=== PATIENT | female | born 2000 | race Caucasian/White ===

== ENCOUNTER 2022-01-05 04:13 | Emergency (ER) | payer MEDICAID, SELFPAY ==
[2022-01-05 04:14] VITALS: BP 125/73; PULSE 81; RESP 18; TEMP 36.7; O2SAT 98; BMI 39.8
--- NOTE | 2022-01-05 04:22 | RAD_ITS ---
STUDY: X-RAY CHEST REASON FOR EXAM: Female, 21 years old. sob TECHNIQUE: AP portable at 4:25 AM COMPARISON: None. FINDINGS: LUNGS: No consolidation. No pneumothorax. MEDIASTINUM: Unremarkable. CARDIAC SILHOUETTE: Not enlarged. BONES AND SOFT TISSUES: No acute abnormalities. RAD/Chest 1 View (Portable) IMPRESSION: Normal portable chest x-ray. Electronically Signed: Kimberly Alvarado MD at 4:52 EDT ,
--- NOTE | 2022-01-05 04:23 | EKG12_ITS ---
Test Reason : SYNCOPE Blood Pressure : / mmHG Vent. Rate : 090 BPM Atrial Rate : 090 BPM P-R Int : 174 ms QRS Dur : 082 ms QT Int : 346 ms P-R-T Axes : 051 019 022 degrees QTc Int : 423 ms Normal sinus rhythm Normal ECG Confirmed by EVERARDO IVY, ZE ([id number]), supervising film or videotape editor DORA THOMAS ([id number]) on 01/09/2022 8:50:46 AM Referred By: ROMAN Confirmed By:ZE MCGEE MD
--- NOTE | 2022-01-05 04:24 | EDS_ITS ---
HPI History of Present Illness Chief Complaint: Syncope Informant: patient and spouse/S.O. Onset/Context/Timing Onset: Today Narrative Narrative: Patient presents via EMS after syncopal episode. She and her significant other were walking from [place] to [place]. Patient states she remembers feeling anxious and getting short of breath. She states the next thing she knew she woke up on the curb. Significant other states that she had a syncopal episode and was unconscious for approximately 3 minutes. He called 911. Patient states she had been having some intermittent chest pain yesterday which she describes as sharp and pressure-like. She states that she is currently 9 weeks , last menstrual cycle October 31. She has not seen a physician to verify this. [facility] Medical History Anxiety Home Medications cephalexin 500 mg PO Q12 #10 cap 01/05/22 [Rx Last Taken Unknown] Allergy/AdvReac Type Severity Reaction Status Date / Time No Known Allergies Allergy Verified 01/05/22 04:16 Social History Smoking Status: Light Smoker (<10/day) ROS ROS ED Constitutional Constitutional ED: Denies chills or fever(s) Eyes Eyes: Denies change in vision ENT ENT ED: Denies sore throat Cardiovascular Cardiovascular: Reports chest pain Respiratory/Chest Respiratory/Chest: Reports dyspnea; Denies cough Gastrointestinal Gastrointestinal: Denies abdominal pain, diarrhea, nausea or vomiting Genitourinary Genitourinary ED: Reports urinary frequency; Denies dysuria Musculoskeletal Musculoskeletal: Denies back pain or neck pain Integumentary Denies rash Neurologic Neurologic: Denies headache(s) or weakness Allergic/Immunologic Allergic/Immunologic ED: Denies urticaria EXAM Physical Exam Const Vital Signs: 01/05/22 04:14 Temperature 98.1 F Temperature Source Oral Pulse Rate 81 Respiratory Rate 18 Blood Pressure 125/73 H Blood Pressure Mean 90 Pulse Ox 98 Oxygen Delivery Method Room Air Positive well nourished and well developed General Appearance ED: well developed HEENT Reports moist mucous membranes Eyes PERRL and EOMs intact bilaterally Neck supple Chest Wall inspection of chest normal and palpation of chest normal Resp normal respiratory effort and clear to auscultation bilaterally Cardio regular rate and regular rhythm GI normal to inspection, nondistended, normoactive bowel sounds and non-tender Palpation: soft Extremity normal to inspection Neuro oriented x3 and no sensory deficits noted Sensorium / Orientation: alert Motor Exam: strength 5/5 throughout Psych mental status grossly normal Skin no rashes or lesions noted MDM MDM MDM Narrative Medical decision making narrative: Patient placed on supervisor pumping station. EKG, chest x-ray, lab work obtained. Urinalysis ordered secondary to urinary frequency. Lab Data Attestation: I reviewed the patient's lab results. Labs: Laboratory Results - last 24 hr 01/05/22 01/05/22 01/05/22 04:23 04:23 04:23 WBC 12.1 H RBC 4.40 Hgb 11.4 L Hct 35.9 L MCV 81.6 MCH 25.9 L MCHC 31.8 L RDW Std Deviation 44.8 H RDW Coeff of Tiara 15.0 H Plt Count 254 MPV 10.2 Immature Gran % (Auto) 0.200 Neut % (Auto) 81.2 H Lymph % (Auto) 13.2 L [place] % (Auto) 4.8 Eos % (Auto) 0.4 Baso % (Auto) 0.2 Absolute Neuts (auto) 9.8 H Absolute Lymphs (auto) 1.60 Nucleated RBC % 0 D-Dimer Quant (PE/DVT) < 0.27 L Sodium 137 Potassium 4.0 Chloride 107 Carbon Dioxide 28.0 Anion Gap 2 L BUN 15 Creatinine 0.76 Estim Creat Clear Calc 93.39 Est GFR (MDRD) Af Amer 125 Est GFR (MDRD) Non-Af 103 BUN/Creatinine Ratio 19.8 Glucose 99 Calcium 8.8 Troponin I High Sens 4 HCG, Quant Urine Color Urine Clarity Urine pH Ur Specific [place] Urine Protein Urine Glucose (UA) Urine Ketones Urine Occult Blood Urine Nitrite Urine Bilirubin Urine Urobilinogen Ur Leukocyte Esterase Urine RBC Urine WBC Ur Squamous Epith Cells Urine Bacteria Urine Mucus 01/05/22 01/05/22 04:23 04:33 WBC RBC Hgb Hct MCV MCH MCHC RDW Std Deviation RDW Coeff of Ti[place] Plt Count MPV Immature Gran % (Auto) Neut % (Auto) Lymph % (Auto) [place] % (Auto) Eos % (Auto) Baso % (Auto) Absolute Neuts (auto) Absolute Lymphs (auto) Nucleated RBC % D-Dimer Quant (PE/DVT) Sodium Potassium Chloride Carbon Dioxide Anion Gap BUN Creatinine Estim Creat Clear Calc Est GFR (MDRD) Af Amer Est GFR (MDRD) Non-Af BUN/Creatinine Ratio Glucose Calcium Troponin I High Sens HCG, Quant 47450 H Urine Color Yellow Urine Clarity Sl. Cloudy Urine pH 6.0 Ur Specific [place] 1.010 Urine Protein Negative Urine Glucose (UA) Normal Urine Ketones Negative Urine Occult Blood 25 H Urine Nitrite Negative Urine Bilirubin Negative Urine Urobilinogen Normal Ur Leukocyte Esterase 500 H Urine RBC 5-10 SEEN Urine WBC 10-25 SEEN Ur Squamous Epith Cells 5-10 SEEN Urine Bacteria 3+ Urine Mucus 0 SEEN Radiography Diagnostic Testing: Clinical Impression(s) from Imaging Studies Chest X-Ray 01/05/22 04:22 IMPRESSION: Normal portable chest x-ray. Electronically Signed: Kimberly Alvarado MD at 4:52 EDT Reading Location ID and State: [address] [place] [address] Tel , Service support , EKG Initial EKG: Attestation: I personally reviewed and interpreted this EKG as follows: Interpretation: Sinus Rhythm (Sinus at 90 with no acute ischemia.) Treatment and Re-Evaluation Narrative: On repeat evaluation patient resting comfortably. No further symptoms while in the emergency room. Lab work reveals mildly elevated white count at 12.1. 81% neutrophils appreciated. D-dimer less than 0.27. Chemistry studies normal. Urinalysis does show 5-10 epithelial cells, however 3+ bacteria are noted with 10-25 white cells. In light of the fact that she is she will be covered with a short course of Keflex. 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 Disposition Disposition: Home, Self Care
[2022-01-05] MEDS: 0.9% Normal Saline 1,000 ML 1000 ML IV (04:29)
[2022-01-05 04:33] LABS: Absolute Neutrophil Count 9.8 X10^3/uL (2.0-7.7); Basophil# 0.02 X10^3/uL; Basophil% 0.2 % (0-1); Eosinophil# 0.05 X10^3/uL; Eosinophils% 0.4 % (0-5); Hematocrit 35.9 % (37-47); Hemoglobin 11.4 g/dL (12.0-15.0); Lymphocyte % 13.2 % (19-41); Mean Corp Hgb Conc 31.8 g/dL (32-36); Mean Corpuscular Hgb 25.9 pg (27.0-32.0); Mean Corpuscular Volume 81.6 fL (81-99); Mean Platelet Vol. 10.2 fl (6.2-12.0); Monocyte# 0.58 X10^3/uL; Monocyte% 4.8 % (0-10); NRBC Flagged by Analyzer 0 % (0-5); Neutrophil # 9.84 X10^3/uL (2.7-7.7); Neutrophil % 81.2 % (47-70); Platelet Count 254 K/mm3 (150-450); RBC Distribution Width SD 44.8 fl (35.1-43.9); White Blood Count 12.1 K/mm3 (4.4-11.0)
[2022-01-05 04:39] LABS: Mucous, Urine 0 SEEN /hpf (<or=2+)
[2022-01-05 04:43] LABS: Color, Urine Yellow (Yellow); Glucose, Dipstick Normal (Normal); Ketone-Dipstick Negative (Negative); Leukocyte Esterase-Dipstick 500 /ul (Negative); Nitrite-Dipstick Negative (Negative); Occult Blood-Urine 25 /ul (Negative); Protein-Dipstick Negative (Negative); Urine Bilirubin Dipstick Negative (Negative); Urine Clarity Sl. Cloudy (Clear); Urine Urobilinogen Normal (Normal)
[2022-01-05 04:49] LABS: Red Blood Cells-Urine 5-10 SEEN /hpf (0-5); White Blood Cells 10-25 SEEN /hpf (0-5)
[2022-01-05 04:49] LABS: D-Dimer Quantitative (DVT/PE) < 0.27 FEU/ug/m (0.27-0.49)
[2022-01-05 04:50] LABS: Bacteria 3+ /hpf (None Seen); Squamous Epithelial Cells - UA 5-10 SEEN /hpf (5-10)
[2022-01-05 04:53] LABS: BUN 15 mg/dL (7-18); Creatinine, Serum 0.76 mg/dL (0.55-1.02); Glucose 99 mg/dL (74-106)
[2022-01-05 04:54] LABS: Anion Gap 2 (5-15); BUN/Creat Ratio 19.8 RATIO (10-20); Calcium,Total 8.8 mg/dL (8.5-10.1); Chloride 107 mmol/L (98-107); EST Glomerular Filtration Rate 103 mL/min (>60); Est Glom Filt Rate - Afr Amer 125 mL/min (>60); Estimated Creatinine Clearance 93.39 ml/min; Sodium Level 137 mmol/L (136-145); Troponin-I HS 4 pg/mL (3.0-54.0)
[2022-01-05] MEDS: Cephalexin 250 MG Capsule 500 MG PO (05:23)
[2022-01-05 05:27] VITALS: BP 120/60; PULSE 80; RESP 18; O2SAT 95
== END 2022-01-05 05:27 | disposition home or self-care (01) ==
PROVIDERS: Emergency Provider Emergency Medicine; Visit Provider Emergency Medicine
DX: O99.891 Other specified diseases and conditions complicating pregnancy (principal); R55 Syncope and collapse; O99.331 Smoking (tobacco) complicating pregnancy, first trimester; F17.200 Nicotine dependence, unspecified, uncomplicated; O26.891 Other specified pregnancy related conditions, first trimester; R82.71 Bacteriuria; R35.0 Frequency of micturition; Z3A.09 9 weeks gestation of pregnancy
CPT/HCPCS: 71045; 80048; 81001; 84484; 84702; 85025; 85379; 93005; 96360; 99285; J7030; A4216

== ENCOUNTER 2022-07-09 15:40 | Inpatient (IN) | payer MEDICAID, SELFPAY ==
[2022-07-09] VITALS (100 sets, daily range): BP systolic 130–219; BP diastolic 63–102; PULSE 63–162; RESP 16–18; TEMP 29.1–37.2; O2SAT 79–99; BMI 48.1
[2022-07-09 15:26] LABS: Hematocrit 33.3 % (37-47); Hemoglobin 10.8 g/dL (12.0-15.0); Mean Corp Hgb Conc 32.4 g/dL (32-36); Mean Corpuscular Hgb 27.7 pg (27.0-32.0); Mean Corpuscular Volume 85.4 fL (81-99); Platelet Count 228 K/mm3 (150-450); RBC Distribution Width CV 12.7 % (11.6-14.6); RBC Distribution Width SD 39.2 fl (35.1-43.9)
[2022-07-09 15:43] LABS: AST(SGOT) 42 U/L (15-37); Alanine Aminotransfer ALT/SGPT 32 U/L (13-56); Creatinine, Serum 0.78 mg/dL (0.55-1.02); EST Glomerular Filtration Rate 99 mL/min (>60); Est Glom Filt Rate - Afr Amer 120 mL/min (>60); Estimated Creatinine Clearance 90.99 ml/min; Uric Acid 6.2 mg/dL (2.6-6.0)
[2022-07-09 15:46] LABS: Protein, Urine (Random) 88.1 mg/dL (<11.9); Protein:Creat Ratio 4541 mg/g CRE (0-200)
[2022-07-09] MEDS: Magnesium Sulfate 4gm/100mL 4 GM/100 ML IV.SOLN. IV (15:56)
[2022-07-09] MEDS: Labetalol (Prefilled) 20 MG/4 ML IV ×4 (16:01→23:37)
[2022-07-09] MEDS: 0.9% Saline Lock 10 ML Syringe IV ×7 (16:04→18:56)
[2022-07-09] MEDS: Magnesium Sulfate 20 GM/500 ML BAG IV (16:24)
[2022-07-09] MEDS: Labetalol (Prefilled) 20 MG/4 ML 40 MG IV ×2 (16:27→23:53)
[2022-07-09] MEDS: Betamethasone/Betamethasone 30 MG/5 ML Vial 12 MG IM (16:43)
[2022-07-09] MEDS: Labetalol 200 MG Tablet PO ×2 (16:53→22:38)
--- NOTE | 2022-07-09 18:03 | PCM.HP.OB ---
HPI - General General Date of Admission: 07/09/22 Date of Service: 07/09/22 Chief Complaint: elevated blood pressure HPI Narrative SIRISHA SHERIDAN, is a 21 F who is admitted at 35w6d for elevated BP. She presented to the office for a routine appointment. At that time her blood pressures were 180-190's systolic. She reports a FLANAGAN. No vision changes or RUQ pain. No ctx, vb, lof. Good FM. She offers no complaints other than a FLANAGAN. She was sent from the office to L&D for further management. PFSH PFS Medical History (Updated 07/09/22 @ 18:[address] Amanda Mukherjee, DO) Anxiety Chlamydia infection affecting Depression Family history of hearing loss at age younger than 7 years Pre-eclampsia Home Medications acetaminophen 500 mg tablet 1,000 mg PO PRN PRN Headache 07/09/22 [History Last Taken 07/09/22 07:00] famotidine 20 mg tablet (Pepcid) 20 mg PO DAILY 07/09/22 [History Last Taken 07/08/22 21:00] [id number] 1 mg tablet 1 tab PO DAILY 07/09/22 [History Last Taken 07/08/22 08:00] Allergy/AdvReac Type Severity Reaction Status Date / Time No Known Allergies Allergy Verified 01/05/22 04:16 Surgical History (Updated 07/09/22 @ 17:23 by My Caro) History of surgery Social History Smoking Status: Former smoker History Elective abortions Hx Para 0 Spontaneous abortions Hx # Term Pregnancies Ectopic pregnancies Hx # Pregnancies Multiple births # of living children NST FHR Rate Baby A FHR Category:: Category I Vital Signs Vital Signs Vital Signs: 07/09/22 14:36 07/09/22 14:36 07/09/22 14:46 Temperature Temperature Source Pulse Rate 70 Respiratory Rate Respiratory Effort Respiratory Depth Respiratory Pattern Blood Pressure 192/91 H 177/91 H Blood Pressure Mean BP Systolic 192 177 BP Diastolic 91 91 Blood Pressure Source Blood Pressure Position Blood Pressure Location Pulse Ox Oxygen Delivery Method 07/09/22 14:46 07/09/22 15:10 07/09/22 15:10 Temperature Temperature Source Pulse Rate 70 65 Respiratory Rate Respiratory Effort Respiratory Depth Respiratory Pattern Blood Pressure 191/93 H Blood Pressure Mean BP Systolic 191 BP Diastolic 93 Blood Pressure Source Blood Pressure Position Blood Pressure Location Pulse Ox Oxygen Delivery Method 07/09/22 15:28 07/09/22 15:28 07/09/22 15:30 Temperature Temperature Source Pulse Rate 72 Respiratory Rate Respiratory Effort Respiratory Depth Respiratory Pattern Blood Pressure 219/102 H 198/93 H Blood Pressure Mean BP Systolic 219 198 BP Diastolic 102 93 Blood Pressure Source Blood Pressure Position Blood Pressure Location Pulse Ox Oxygen Delivery Method 07/09/22 15:30 07/09/22 15:38 07/09/22 15:38 Temperature Temperature Source Pulse Rate 72 66 Respiratory Rate Respiratory Effort Respiratory Depth Respiratory Pattern Blood Pressure 183/84 H Blood Pressure Mean BP Systolic 183 BP Diastolic 84 Blood Pressure Source Blood Pressure Position Blood Pressure Location Pulse Ox Oxygen Delivery Method 07/09/22 15:48 07/09/22 15:48 07/09/22 15:58 Temperature Temperature Source Pulse Rate 63 Respiratory Rate Respiratory Effort Respiratory Depth Respiratory Pattern Blood Pressure 180/86 H 184/90 H Blood Pressure Mean BP Systolic 180 184 BP Diastolic 86 90 Blood Pressure Source Blood Pressure Position Blood Pressure Location Pulse Ox Oxygen Delivery Method 07/09/22 15:58 07/09/22 16:20 07/09/22 16:20 Temperature Temperature Source Pulse Rate 77 74 Respiratory Rate Respiratory Effort Respiratory Depth Respiratory Pattern Blood Pressure 173/82 H Blood Pressure Mean BP Systolic 173 BP Diastolic 82 Blood Pressure Source Blood Pressure Position Blood Pressure Location Pulse Ox Oxygen Delivery Method 07/09/22 16:32 07/09/22 16:33 07/09/22 16:33 Temperature Temperature Source Pulse Rate 73 Respiratory Rate Respiratory Effort Respiratory Depth Respiratory Pattern Blood Pressure Blood Pressure Mean BP Systolic BP Diastolic Blood Pressure Source Blood Pressure Position Blood Pressure Location Pulse Ox 81 98 Oxygen Delivery Method 07/09/22 16:38 07/09/22 16:38 07/09/22 16:43 Temperature Temperature Source Pulse Rate 162 H 75 Respiratory Rate Respiratory Effort Respiratory Depth Respiratory Pattern Blood Pressure Blood Pressure Mean BP Systolic BP Diastolic Blood Pressure Source Blood Pressure Position Blood Pressure Location Pulse Ox 79 Oxygen Delivery Method 07/09/22 16:43 07/09/22 16:44 07/09/22 16:44 Temperature Temperature Source Pulse Rate 77 Respiratory Rate Respiratory Effort Respiratory Depth Respiratory Pattern Blood Pressure 157/82 H Blood Pressure Mean BP Systolic 157 BP Diastolic 82 Blood Pressure Source Blood Pressure Position Blood Pressure Location Pulse Ox 98 Oxygen Delivery Method 07/09/22 16:52 07/09/22 16:52 07/09/22 16:54 Temperature Temperature Source Pulse Rate 79 82 Respiratory Rate Respiratory Effort Respiratory Depth Respiratory Pattern Blood Pressure 162/79 H Blood Pressure Mean BP Systolic 162 BP Diastolic 79 Blood Pressure Source Blood Pressure Position Blood Pressure Location Pulse Ox Oxygen Delivery Method 07/09/22 16:54 07/09/22 16:59 07/09/22 16:59 Temperature Temperature Source Pulse Rate 82 Respiratory Rate Respiratory Effort Respiratory Depth Respiratory Pattern Blood Pressure Blood Pressure Mean BP Systolic BP Diastolic Blood Pressure Source Blood Pressure Position Blood Pressure Location Pulse Ox 98 98 Oxygen Delivery Method 07/09/22 17:02 07/09/22 17:02 07/09/22 17:04 Temperature Temperature Source Pulse Rate 78 78 Respiratory Rate Respiratory Effort Respiratory Depth Respiratory Pattern Blood Pressure 162/76 H Blood Pressure Mean BP Systolic 162 BP Diastolic 76 Blood Pressure Source Blood Pressure Position Blood Pressure Location Pulse Ox Oxygen Delivery Method 07/09/22 17:04 07/09/22 17:09 07/09/22 17:09 Temperature Temperature Source Pulse Rate 76 Respiratory Rate Respiratory Effort Respiratory Depth Respiratory Pattern Blood Pressure Blood Pressure Mean BP Systolic BP Diastolic Blood Pressure Source Blood Pressure Position Blood Pressure Location Pulse Ox 99 98 Oxygen Delivery Method 07/09/22 17:12 07/09/22 17:12 07/09/22 17:14 Temperature Temperature Source Pulse Rate 79 82 Respiratory Rate Respiratory Effort Respiratory Depth Respiratory Pattern Blood Pressure 151/74 H Blood Pressure Mean BP Systolic 151 BP Diastolic 74 Blood Pressure Source Blood Pressure Position Blood Pressure Location Pulse Ox Oxygen Delivery Method 07/09/22 17:14 07/09/22 17:19 07/09/22 17:19 Temperature Temperature Source Pulse Rate 83 Respiratory Rate Respiratory Effort Respiratory Depth Respiratory Pattern Blood Pressure Blood Pressure Mean BP Systolic BP Diastolic Blood Pressure Source Blood Pressure Position Blood Pressure Location Pulse Ox 98 98 Oxygen Delivery Method 07/09/22 17:22 07/09/22 17:22 07/09/22 17:24 Temperature Temperature Source Pulse Rate 77 82 Respiratory Rate Respiratory Effort Respiratory Depth Respiratory Pattern Blood Pressure 153/74 H Blood Pressure Mean BP Systolic 153 BP Diastolic 74 Blood Pressure Source Blood Pressure Position Blood Pressure Location Pulse Ox Oxygen Delivery Method 07/09/22 17:24 07/09/22 17:29 07/09/22 17:29 Temperature Temperature Source Pulse Rate 82 Respiratory Rate Respiratory Effort Respiratory Depth Respiratory Pattern Blood Pressure Blood Pressure Mean BP Systolic BP Diastolic Blood Pressure Source Blood Pressure Position Blood Pressure Location Pulse Ox 99 98 Oxygen Delivery Method 07/09/22 17:33 07/09/22 17:33 07/09/22 17:34 Temperature Temperature Source Pulse Rate 75 81 Respiratory Rate Respiratory Effort Respiratory Depth Respiratory Pattern Blood Pressure 154/71 H Blood Pressure Mean BP Systolic 154 BP Diastolic 71 Blood Pressure Source Blood Pressure Position Blood Pressure Location Pulse Ox Oxygen Delivery Method 07/09/22 17:34 07/09/22 17:39 07/09/22 17:39 Temperature Temperature Source Pulse Rate 92 Respiratory Rate Respiratory Effort Respiratory Depth Respiratory Pattern Blood Pressure Blood Pressure Mean BP Systolic BP Diastolic Blood Pressure Source Blood Pressure Position Blood Pressure Location Pulse Ox 98 98 Oxygen Delivery Method 07/09/22 17:43 07/09/22 17:43 07/09/22 17:44 Temperature Temperature Source Pulse Rate 83 77 Respiratory Rate Respiratory Effort Respiratory Depth Respiratory Pattern Blood Pressure 168/81 H Blood Pressure Mean BP Systolic 168 BP Diastolic 81 Blood Pressure Source Blood Pressure Position Blood Pressure Location Pulse Ox Oxygen Delivery Method 07/09/22 17:44 07/09/22 17:49 07/09/22 17:49 Temperature Temperature Source Pulse Rate 87 Respiratory Rate Respiratory Effort Respiratory Depth Respiratory Pattern Blood Pressure Blood Pressure Mean BP Systolic BP Diastolic Blood Pressure Source Blood Pressure Position Blood Pressure Location Pulse Ox 99 98 Oxygen Delivery Method 07/09/22 17:54 07/09/22 17:54 07/09/22 17:54 Temperature Temperature Source Pulse Rate 85 Respiratory Rate Respiratory Effort Respiratory Depth Respiratory Pattern Blood Pressure 153/78 H Blood Pressure Mean BP Systolic 153 BP Diastolic 78 Blood Pressure Source Blood Pressure Position Blood Pressure Location Pulse Ox 98 Oxygen Delivery Method 07/09/22 17:59 07/09/22 17:59 07/09/22 15:56 Temperature 97.7 F L Temperature Source Temporal Pulse Rate 89 77 Respiratory Rate 16 Respiratory Effort Respiratory Depth Respiratory Pattern Blood Pressure 184/90 H Blood Pressure Mean 121 BP Systolic BP Diastolic Blood Pressure Source Monitor Blood Pressure Position Semi-Fowlers Blood Pressure Location Left Arm Pulse Ox 98 99 Oxygen Delivery Method Room Air 07/09/22 16:13 07/09/22 16:28 07/09/22 16:59 Temperature 98.9 F 98.9 F 98.9 F Temperature Source Temporal Temporal Temporal Pulse Rate 77 74 78 Respiratory Rate 18 18 18 Respiratory Effort Normal Normal Respiratory Depth Normal Normal Respiratory Pattern Normal Normal Blood Pressure 184/90 H 173/82 H 162/79 H Blood Pressure Mean 121 112 106 BP Systolic BP Diastolic Blood Pressure Source Monitor Monitor Monitor Blood Pressure Position Semi-Fowlers Semi-Fowlers Semi-Fowlers Blood Pressure Location Left Arm Left Arm Left Arm Pulse Ox 98 98 99 Oxygen Delivery Method Room Air Room Air Room Air 07/09/22 17:42 Temperature 98.2 F Temperature Source Temporal Pulse Rate 80 Respiratory Rate 18 Respiratory Effort Normal Respiratory Depth Normal Respiratory Pattern Normal Blood Pressure 168/91 H Blood Pressure Mean 116 BP Systolic BP Diastolic Blood Pressure Source Monitor Blood Pressure Position Semi-Fowlers Blood Pressure Location Left Arm Pulse Ox 99 Oxygen Delivery Method Room Air Weight Weight: 263 lb Body Mass Index (BMI) 48.1 Physical Exam Const alert and no apparent distress General Appearance: comfortable HEENT normocephalic Resp normal respiratory effort GI soft to palpation and non-tender Extremity Extremity Narrative: Trace edema b/l Labs Labs Labs: Blood Type O NEGATIVE Antibody Screen NEGATIVE Hct 33.3 % (37-47) L Hgb 10.8 g/dL (12.0-15.0) L Group B Strep DNA Pending Assessment & Plan (1) 35 weeks gestation of : PLAN: - BP's severe range on L&D requiring IV anti hypertensives. Labetalol hypertensive protocol initiated. Mag gtt started for seizure prophylaxis. She has a FLANAGAN and elevated p/c ratio. Given persistent severe range BP's despite treatment, recommend delivery at this time for pre eclampsia with severe features. Discussed risks of pre maturity and 1 dose of BMZ given. TAUS performed showing sabrina breech presentation. Discussed r/b ECV vs section, and recommend section given breech and pre eclampsia with severe features. Patient desires to proceed with section. Pre op Ancef ordered. GBS collected. Proceed with delivery. Discussed plan of care with partners in office for second opinion. (2) Tobacco use: (3) Rh negative state in antepartum period: (4) Obesity affecting : (5) History of depression: (6) Pre-eclampsia:
[2022-07-09] MEDS: Acetaminophen 500 MG Tablet 1000 MG PO (18:48)
[2022-07-09] MEDS: Lactated Ringers 1,000 ML 50 ML IV (18:59)
[2022-07-09] MEDS: Sodium Citrate/Citric Acid 30 ML UDC PO (19:23)
[2022-07-09] MEDS: Cefazolin 2 GM in 0.9% Normal Saline 100 ML IV (19:36)
[2022-07-09] MEDS: Lactated Ringers 1,000 ML 15 ML IV (20:05)
[2022-07-09 20:07] LABS: Group B Strep DNA By PCR Negative (Negative); Internal Control PASS; Probe Check PASS; Specimen Processing Control PASS
[2022-07-09] MEDS: Oxytocin 10 UNITS/ML Vial IM (20:13)
[2022-07-09] MEDS: miSOPROStol 200 MCG Tablet 1000 MCG INTRA-UTER (20:14)
--- NOTE | 2022-07-09 20:18 | PCM.NY.DEL ---
Delivery Attendance Service Date: 07/09/22 Service Time: 20:06 Asked to attend delivery by: OB and Nursing Reason for attendance: Maternal Condition (pre-eclampsia ) and Prematurity Plan: Return to Mother Handoff: 35 week male born via emergency CS due to pre-eclampsia. Initially stunned with poor color and vigor requiring drying, stimulation, and bulb suction. Reasuring exam at 5 mins post with good oxygen saturation and color. [place] [facility] [id number] with plan for BGT checks per protocol. Course of Delivery Was resuscitation required: Yes Interventions at Delivery: Bulb Suction and Tactile Stimulation Physical Exam Apgars/Vital Signs/Weight: Weight: 119.295 kg General: Alert, Active, Strong cry and Responsive to exam Head: Normocephalic Ears: Structurally normal and Neutral position Nose: Nares patent Oropharynx: Normal, moist mucous membranes Neck: Normal Lungs: Clear to auscultation, No rales and No wheezes Cardiovascular: Regular rate and rhythm, No murmurs, No rub and No gallop Abdomen: Soft and Non distended Genitalia, Female: External genitalia normal Genitalia, Male: Penis normal Skin: Normal color General Weight: 119.295 kg
--- NOTE | 2022-07-09 21:07 | OP.PCM_ITS ---
Problems Associated Problem List Diagnoses (1) Pre-eclampsia: (2) History of depression: (3) Obesity affecting : (4) Rh negative state in antepartum period: (5) Tobacco use: (6) 35 weeks gestation of : (7) Breech presentation: Report of Operation Date of Procedure: 07/09/22 Pre-Operative Diagnosis: 35 week gestation, pre eclampsia with severe features, breech presentation, obesity in Post-Operative Diagnosis: As above Surgery/Procedure Performed:: PLTCS via pfannenstiel incision Description of Surgical Findings:: Large amount of clear fluid. Normal appearing placenta with 3 VC. VMI in sabrina breech presentation with loose nuchal cord x 2. Normal appearing uterus and bilateral adnexa. Apgars 7, 9. Surgeon: Amanda Mukherjee director informatics: Gonzalo BELLA Type of Anesthesia: Spinal Special Medications: None Specimen's removed: Placenta Drains: Hanna Estimated Blood Loss (mL): 900 Fluids Replaced: 1500 mL Description of Procedure: The patient was taken to the operating room where spinal anesthesia was found to be adequate. She was prepped and draped in the dorsal position using a leftward tilt. A Pfannenstiel skin incision was made using a scalpel and this was carried down to the underlying layer of fascia. The fascia was incised in the midline. The fascia was extended laterally using blunt dissection. The fascia was dissected off the rectus muscles using a combination of sharp and blunt dissection. The rectus muscles were in the midline. The peritoneum was entered bluntly with good visualization of the bladder. The peritoneal incision was extended bluntly. A bladder blade was inserted. A low transverse incision was made on the uterus with a scalpel. The uterine incision was extend ed bluntly. Membranes were ruptured for clear fluid. The buttocks of the was brought to the hysterotomy and delivered followed by the legs and body of the , followed by arms, and lastly followed by head without any excessive force or delay. The head was flexed during delivery. A loose nuchal cord x2 was noted during delivery. The cord was clamped and cut immediately and the was handed off to the awaiting nursery staff. Cord gases and cord blood were sent. The placenta was removed with manual extraction. The uterus was exteriorized. Uterus was cleared of all clot and debris. Uterine atony was noted and IM pitocin was given. Uterine atony was still noted, and 1000 mcg of Cytotec was placed in the uterus. Uterine massage was performed and the uterus began to firm. The uterus was closed in a 2 layer fashion. Vicryl was used to close the hysterotomy in a running locked fashion. A second imbricating layer was performed using Vicryl. Hemostasis was noted. The uterus was placed back into the abdomen. Hemostasis of the uterine incision was again noted. The peritoneum was closed with 3-0 Vicryl in a running fashion. The rectus muscles were inspected and noted to be hemostatic. There was a vessel that was noted to be bleeding in the midline anterior fascia just above where the fascia was dissected off the rectus muscles. 2 [id number] stitches were placed using 3-0 Vicryl to achieve hemostasis in the fascia. The fascia was closed with strata fix in running fashion. Subcutaneous space was irrigated made hemostatic with Bovie cautery. Subcutaneous space was reapproximated using 3-0 Vicryl. Monocryl was used to close the skin. A dressing was placed. Instrument, sponge count needle counts were correct. The patient was taken to recovery in stable condition. The clinical trial assistant was present for the entire procedure and assisted with draping patient, delivery of infant, and closure. Grafts/Implants Used: None Procedure Start Time: 19:40 Complications None Admit VTE Documentation VTE Present on Admission: No VTE Mechan Device Prophylaxis: SCD's
[2022-07-09] MEDS: Ketorolac 30 MG/ML Syringe IV (22:24)
[2022-07-09] MEDS: oxyCODONE 5 MG Tablet PO (23:25)
[2022-07-10] VITALS (256 sets, daily range): BP systolic 109–164; BP diastolic 61–88; PULSE 70–95; RESP 16–20; TEMP 36.1–38.4; O2SAT 16–100
[2022-07-10] MEDS: Labetalol 100 MG/20 ML Vial 80 MG IV (00:09)
[2022-07-10] MEDS: Acetaminophen 500 MG Tablet 1000 MG PO ×4 (01:08→19:42)
[2022-07-10] MEDS: Magnesium Sulfate 20 GM/500 ML BAG IV ×2 (02:34→13:13)
[2022-07-10] MEDS: Ketorolac 30 MG/ML Syringe IV ×3 (04:17→16:00)
[2022-07-10] MEDS: 0.9% Saline Lock 10 ML Syringe IV ×3 (04:18→13:15)
[2022-07-10 04:19] LABS: Hematocrit 29.1 % (37-47); Hemoglobin 9.5 g/dL (12.0-15.0); Mean Corp Hgb Conc 32.6 g/dL (32-36); Mean Corpuscular Hgb 28.1 pg (27.0-32.0); Mean Corpuscular Volume 86.1 fL (81-99); Mean Platelet Vol. 11.6 fl (6.2-12.0); Platelet Count 230 K/mm3 (150-450); RBC Distribution Width CV 12.7 % (11.6-14.6); RBC Distribution Width SD 39.5 fl (35.1-43.9); Red Blood Count 3.38 M/mm3 (4.2-5.4); White Blood Count 20.4 K/mm3 (4.4-11.0)
--- NOTE | 2022-07-10 04:22 | NURSING ---
When this RN was at bedside assisting to feed, MOB stated,when we lived in [place], after I found out I was , my got into sleeping pills and smoking weed. It was a good thing we moved away from [place] because I started to do that too. Patient said she has not used drugs since that time. Finding reported to rod tape operator and nsy drug screens to be performed.
[2022-07-10 04:43] LABS: ALB/GLOB Ratio 0.5 RATIO (0.9-2.4); AST(SGOT) 43 U/L (15-37); Alanine Aminotransfer ALT/SGPT 37 U/L (13-56); Albumin, Serum 1.9 g/dL (3.2-5.0); Alkaline Phosphatase 214 U/L (45-117); Anion Gap 7 (5-15); BUN 10 mg/dL (7-18); BUN/Creat Ratio 9.3 RATIO (10-20); Calcium,Total 7.7 mg/dL (8.5-10.1); Chloride 110 mmol/L (98-107); Creatinine, Serum 1.07 mg/dL (0.55-1.02); EST Glomerular Filtration Rate 69 mL/min (>60); Est Glom Filt Rate - Afr Amer 83 mL/min (>60); Estimated Creatinine Clearance 66.33 ml/min; Globulin 4.2 g/dL (2.2-4.2); Glucose 110 mg/dL (74-106); Potassium 4.4 mmol/L (3.5-5.1); Protein, Total 6.1 g/dL (6.4-8.2); Sodium Level 137 mmol/L (136-145)
--- NOTE | 2022-07-10 07:39 | NURSING ---
When in room during night, this rn and Janice Lunsford RN were in room when pt discussed her was on sleeping pills and using weed when they had moved to [place] right before was found out. Stated it was good that they got out of that because she was falling into it as well. She stated her used to use drugs and was clean until relapsing not too long ago but not mentioned the exact time.
[2022-07-10] MEDS: Enoxaparin 40 MG/0.4 ML Syringe SC ×2 (08:19→22:28)
--- NOTE | 2022-07-10 08:58 | PN.OBGYN_ITS ---
Subjective Subjective Pain controlled Objective Data Objective Data Vital Signs: Vital Signs Temp Pulse Resp BP Pulse Ox O2 Del Method 97.9 F 83 16 128/70 H 97 Room Air 07/10/22 08:00 07/10/22 08:54 07/10/22 08:00 07/10/22 08:53 07/10/22 08:54 07/10/22 07:53 Oxygen Delivery Method Room Air Weight: 263 lb Body Mass Index (BMI) 48.1 Intake & Output: Intake and Output for Last 24 Hours 07/08/22 07/09/22 07/10/22 23:59 23:59 23:59 Intake Total 3095 / 3095 595 / 595 Output Total 950 / 950 800 / 800 Balance 2145 / 2145 -205 / -205 Lab / Micro Data Result Diagrams: 07/10/22 04:15 07/10/22 04:15 Labs: Laboratory Results - last 24 hr 07/09/22 15:10: WBC 12.0 H, RBC 3.90 L, Hgb 10.8 L, Hct 33.3 L, MCV 85.4, MCH 27.7, MCHC 32.4, RDW Std Deviation 39.2, RDW Coeff of Tiara 12.7, Plt Count 228, MPV 12.0 07/09/22 15:10: Creatinine 0.78, Estim Creat Clear Calc 90.99, Est GFR (MDRD) Af Amer 120, Est GFR (MDRD) Non-Af 99, Uric Acid 6.2 H, AST 42 H, ALT 32 07/09/22 15:10: Blood Type O NEGATIVE, Antibody Screen TNP 07/09/22 15:10: Antibody Screen NEGATIVE 07/09/22 15:20: U Random Total Protein 88.1 H, Urine Creatinine 19.40, Protein/Creatinin Ratio 4541 H 07/09/22 17:48: Group B Strep DNA Negative, Specimen Comment Not Reportable 07/10/22 04:15: WBC 20.4 H, RBC 3.38 L, Hgb 9.5 L, Hct 29.1 L, MCV 86.1, MCH 28.1, MCHC 32.6, RDW Std Deviation 39.5, RDW Coeff of Tiara 12.7, Plt Count 230, MPV 11.6 07/10/22 04:15: Sodium 137, Potassium 4.4, Chloride 110 H, Carbon Dioxide 20.0 L , Anion Gap 7, BUN 10, Creatinine 1.07 H, Estim Creat Clear Calc 66.33, Est GFR (MDRD) Af Amer 83, Est GFR (MDRD) Non-Af 69, BUN/Creatinine Ratio 9.3 L, Glucose 110 H, Calcium 7.7 L, Total Bilirubin 0.20, AST 43 H, ALT 37, Alkaline Phosphatase 214 H, Total Protein 6.1 L, Albumin 1.9 L, Globulin 4.2, Albumin/Globulin Ratio 0.5 L Micro: Microbiology 07/09/22 17:41 Nasal Secretion SARS-CoV-2 Antigen (Rapid) - Final Physical Exam Const alert, oriented x3 and no apparent distress HEENT normocephalic GI soft to palpation, non-tender and non-distended GI Narrative: fundus firm, mid & below umbilicus Incision - bandage c/d/i Extremity normal to inspection and no calf tenderness Assessment & Plan (1) Pre-eclampsia: COMMENT: POD#1 PLAN: PreE - continue magnesium sulfate for 24 hours. Continue labetalol. ID - currently AF but had temp of 101 early this morning. Will monitor closely for signs & symptoms of infection. WBC=20. Repeat CBC tomorrow. Heme - HDS, hb=9.5 GI - ADAT today - no issues Routine care
[2022-07-10] MEDS: Senna/Docusate Sodium 1 Tablet PO (11:05)
--- NOTE | 2022-07-10 16:10 | CASEMGMT ---
Social Work Labor and Delivery Consult received and noted. Records reviewed. Will plan to meet with patient/mother of baby 07.11.2022. -NICK Mccabe, FUEL RETROFITTING TECHNICIAN
[2022-07-10] MEDS: Ibuprofen 600 MG Tablet PO (22:23)
[2022-07-10] MEDS: Labetalol 200 MG Tablet PO (22:24)
[2022-07-11 00:15] VITALS: BP 128/66; PULSE 73; RESP 17; TEMP 36.1
[2022-07-11] MEDS: Acetaminophen 500 MG Tablet 1000 MG PO ×4 (01:44→20:17)
[2022-07-11 04:20] VITALS: BP 131/58; PULSE 75; RESP 17; TEMP 36.4
[2022-07-11] MEDS: Ibuprofen 600 MG Tablet PO ×4 (04:35→22:35)
[2022-07-11] MEDS: 0.9% Saline Lock 10 ML Syringe IV (04:36)
[2022-07-11] MEDS: Labetalol 200 MG Tablet PO ×3 (06:24→22:35)
--- NOTE | 2022-07-11 06:27 | NURSING ---
This RN through out hourly shift has had to remind MOB when it is time to nurse and has had to fully assist MOB to position and hold breast to get infant to latch and continually suck on breast. MOB has called out every time she is in bed and the infant is in the crib crying for this RN to come in and help with infant. This RN has checked/changed all diapers throughout the shift and at 0300 caught MOB sleeping with infant in the bed and the infant was on the edge of the bed. Safe sleep was reinforced and this RN encouraged MOB to call out to put back in crib when MOB gets tired.
[2022-07-11 07:54] VITALS: BP 120/58; PULSE 72; RESP 16; TEMP 36.3; O2SAT 98
--- NOTE | 2022-07-11 09:03 | PCM.PN.OB ---
Subjective Subjective Patient seen at bedside. Up ambulating in room. Denies any pain. Voiding without difficulty. Breast and bottle feeding infant. Denies headache, dizziness, SOB, or CP. Objective Data Objective Data Vital Signs: Vital Signs Temp Pulse Resp BP Pulse Ox O2 Del Method 97.3 F L 72 16 120/58 L 98 Room Air 07/11/22 07:54 07/11/22 07:54 07/11/22 07:54 07/11/22 07:54 07/11/22 07:54 07/11/22 07:54 Oxygen Delivery Method Room Air Weight: 263 lb Body Mass Index (BMI) 48.1 Intake & Output: Intake and Output for Last 24 Hours 07/09/22 07/10/22 07/11/22 23:59 23:59 23:59 Intake Total 3095 / 3095 3158.08 / 3158.08 Output Total 950 / 950 3650 / 3650 Balance 2145 / 2145 -491.92 / -491.92 Lab / Micro Data Result Diagrams: 07/10/22 04:15 07/10/22 04:15 Micro: Microbiology 07/09/22 17:41 Nasal Secretion SARS-CoV-2 Antigen (Rapid) - Final ROS Eyes Eyes: Denies blurry vision, change in vision or spots in vision ENT HEENT: Denies dizziness or headache(s) Cardiovascular Cardiovascular: Denies abdominal pain, chest pain or dyspnea Respiratory/Chest Respiratory/Chest: Denies cough, dyspnea, shortness of breath at rest or shortness of breath with exertion Gastrointestinal Gastrointestinal: Denies abdominal pain, diarrhea or vomiting Genitourinary Genitourinary: Denies change in urinary stream, difficulty urinating or dysuria Musculoskeletal Musculoskeletal: Reports none Integumentary Integumentary: Denies rash Neurologic Neurologic: Denies dizziness, headache(s), memory loss or weakness Physical Exam Narrative Dressing is dry and intact Const alert and no apparent distress General Appearance: cooperative and comfortable Exam Limitations: no limitations HEENT normocephalic Eyes General Eye: normal appearance of both eyes Neck full ROM General: normal visual inspection Chest Chest: symmetrical chest wall rise Resp normal respiratory effort and normal air movement Effort and Inspection: symmetric chest movement Auscultation: clear to auscultation bilaterally Cardio regular rate and regular rhythm GI normal to inspection, nondistended, normoactive bowel sounds Back/Spine normal ROM Extremity full ROM and no calf tenderness General Extremity: normal exam except as noted Skin no rashes or lesions noted Neuro CN's II-XII intact bilaterally Psych mental status grossly normal Assessment & Plan (1) Status post primary low transverse section: (2) Pre-eclampsia: COMMENT: POD#1 (3) Obesity affecting : (4) History of depression: PLAN: Plan POD 2 Primary C/S Magnesium sulfate stopped last night Blood pressures within normal ranges Continue Labetalol 200 mg PO TID Will continue to monitor Anticipate discharge home tomorrow
[2022-07-11] MEDS: Senna/Docusate Sodium 1 Tablet PO (10:28)
[2022-07-11] MEDS: Enoxaparin 40 MG/0.4 ML Syringe SC ×2 (10:28→22:34)
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
--- NOTE | 2022-07-11 13:55 | CASEMGMT ---
Social Work Labor and Delivery Called [facility] at [phone]. Spoke with Fozia in the intake screening department. Referral given due to concerns about mother of baby (MOB) low literacy, continuing to need much help with feeding/difficulty completing feeding independently, limited support system to help MOB, reported mental health and substance use histories for both parents during timeframe (so exposure to in utero via maternal use), instability with general basic needs, and FOB reported status as a registered sex offender. Brief maternal and infant histories provided. Updated MOB is not aware what county her medicaid is through, reportedly has WIC, and agrees to a [facility] referral. Per Fozia, case will be screened in and likely a worker to the hospital. This policy writer typist expressed that would like to have a worker see family prior to discharge and asked for this policy writer typist to be called with an update. Plan: Social work to follow and assist this family during hospital stay. Collaboration with nursing and medical staff as indicated. Collaboration with children services for safe discharge plan for baby. -NICK Parikh, CAKE ICER AND PACKER
[2022-07-11 14:00] VITALS: BP 115/67; PULSE 70; RESP 16; TEMP 36.5; O2SAT 98
--- NOTE | 2022-07-11 14:45 | NURSING ---
This RN at bedside at this time. This RN noticed patient was face-timing with FOB during infant's first bath. This RN commented that it was a good idea to keep FOB involved and asked if he enjoyed watching the bath. Patient responded that FOB hung up on her during the bath because he could not tolerate the crying. Lola with [facility] notified
[2022-07-11 20:20] VITALS: BP 126/66; PULSE 82; RESP 18; TEMP 36.3; O2SAT 97
--- NOTE | 2022-07-12 00:42 | NURSING ---
During report that was given in room, pt stated she gave 33 ml of formula. This nurse educated pt on frequency of feeds and amount of formula per feed. This nurse also spoke with pt during the initial shift assessment. Pt made a comment about FOB not taking care of patient like he should be. Pt is worried she won't be taken care of at home by FOB. This nurse also notes that FOB left after delivery on 07/09 and did not return until 07/11 at 1800. FOB then left unit around 2030. Pt states FOB will not be returning until the morning when MOB and is discharged. This nurse also notes that around 2200 pt called out asking for help. This nurse entered the room and notes that baby was in the crib crying. MOB stated she was not sure what to do. This nurse encouraged MOB to place baby skin to skin and feed baby once she calmed down. Pt did so successfully.
[2022-07-12 01:30] VITALS: BP 123/67; PULSE 81; RESP 16; TEMP 36.3; O2SAT 98
[2022-07-12] MEDS: Acetaminophen 500 MG Tablet 1000 MG PO ×3 (01:30→14:46)
[2022-07-12] MEDS: Ibuprofen 600 MG Tablet PO ×3 (04:07→16:59)
[2022-07-12] MEDS: Labetalol 200 MG Tablet PO ×2 (06:18→14:45)
--- NOTE | 2022-07-12 06:55 | NURSING ---
This RN discussed the car seat challenge with MOB and explained that baby would be in the nursery for 2 hours with a nurse. Pt looked at baby with a flat affect and said Good, I get to be away from you for a little while. This RN then asked MOb if baby had any wet or dirty diapers. MOB said baby had a little pee but it was not worth changing. RN encouraged MOB to change the newborns diaper when she notices the diaper is dirty or wet due to possibility of skin irritation or rash. MOB did not respond and did not change the newborns diaper.
--- NOTE | 2022-07-12 08:18 | PN.OBGYN_ITS ---
Subjective Subjective Doing well per patient and nursing staff. Ambulating and taking PO without difficulty. Voiding and passing flatus. Pain controlled. , services for assistance. Supplementing with formula. Denies headache, visual changes, chest pain, shortness of breath, leg pain or increased bleeding. Lochia normal. Objective Data Objective Data Vital Signs: Vital Signs Temp Pulse Resp BP Pulse Ox O2 Del Method 97.3 F L 81 16 123/67 H 98 Room Air 07/12/22 01:30 07/12/22 01:30 07/12/22 01:30 07/12/22 01:30 07/12/22 01:30 07/12/22 01:30 Oxygen Delivery Method Room Air Weight: 263 lb Body Mass Index (BMI) 48.1 Intake & Output: Intake and Output for Last 24 Hours 07/10/22 07/11/22 07/12/22 23:59 23:59 23:59 Intake Total 3158.08 / 3158.08 Output Total 3650 / 3650 Balance -491.92 / -491.92 Lab / Micro Data Result Diagrams: 07/10/22 04:15 07/10/22 04:15 Micro: Microbiology 07/09/22 Unknown Genital vaginal Group B Streptococcus Culture - Final Group B Beta Streptococcus is not isolated. 07/09/22 17:41 Nasal Secretion SARS-CoV-2 Antigen (Rapid) - Final ROS Constitutional Constitutional: Reports systems reviewed and no addt'l complaints, except as documented; Denies headache(s) Eyes Eyes: Denies acute decrease in peripheral vision, blurry vision or change in vision ENT HEENT: Reports systems reviewed and no addt'l complaints, except as documented Cardiovascular Cardiovascular: Denies chest pain or dizziness Respiratory/Chest Respiratory/Chest: Denies cough, dyspnea, dyspnea on exertion, shortness of breath at rest or shortness of breath with exertion Gastrointestinal Gastrointestinal: Denies abdominal pain, diarrhea, nausea or vomiting Genitourinary Genitourinary: Denies abdominal discomfort Musculoskeletal Musculoskeletal: Denies limited range of motion Integumentary Integumentary: Reports systems reviewed and no addt'l complaints, except as documented Neurologic Neurologic: Reports systems reviewed and no addt'l complaints, except as documented Psychiatric Psychiatric: Reports systems reviewed and no addt'l complaints, except as documented Endocrine Endocrinology: Reports systems reviewed and no addt'l complaints, except as documented Hematologic/Lymphatic Hematologic/Lymphatic: Reports systems reviewed and no addt'l complaints, except as documented Allergic/Immunologic Allergic/Immunologic: Reports systems reviewed and no addt'l complaints, except as documented Physical Exam Const alert and oriented x3 General Appearance: cooperative Orientation / Consciousness: awake, oriented to person, oriented to place and oriented to time Exam Limitations: no limitations HEENT normocephalic Head and Scalp: normal to inspection, normocephalic and atraumatic Face and Sinus: normal facial exam Eyes General Eye: normal appearance of both eyes Neck full ROM Chest Chest: symmetrical chest wall rise Resp normal respiratory effort and normal air movement Auscultation: clear to auscultation bilaterally Cardio regular rate, regular rhythm, S1 normal heart sound, S2 normal heart sound, no murmurs, no rub, no gallops and no clicks GI normal to inspection, nondistended, normoactive bowel sounds and non-tender GI Narrative: Dressing dry and intact appearance of the vagina normal Bladder / Kidney Exam: no CVA tenderness Back/Spine normal ROM Extremity normal to inspection and full ROM Skin no rashes or lesions noted Neuro oriented x3 and moves all extremities Sensorium / Orientation: awake, alert and oriented to person Motor Exam: clonus absent Deep Tendon Reflexes: Rt Patellar (L4): 2+ and Lt Patellar (L4): 2+ Assessment & Plan (1) Status post primary low transverse section: (2) Breech presentation: (3) Pre-eclampsia: COMMENT: POD#3 (4) Rh negative state in antepartum period: PLAN: Plan 1) POD #3 LTCS 2) Vitals stable 3) I&O 4) Pain controlled 5) Planning D/C today 6) Human Resources Hr Representative and CPS involved in care, uncertain of discharge plan at this time 7) Follow up in one week and 6 week for PP visit.
[2022-07-12 09:14] VITALS: BP 134/69; PULSE 88; RESP 16; TEMP 36.1; O2SAT 98
[2022-07-12] MEDS: Senna/Docusate Sodium 1 Tablet PO (09:47)
[2022-07-12] MEDS: Enoxaparin 40 MG/0.4 ML Syringe SC (09:47)
--- NOTE | 2022-07-12 12:52 | PCM.DC.SUM ---
Providers Date of Admission: 07/09/22 Primary Care Physician: Pamela Primary Care Phys Reason For Visit: Diagnosis Discharge Diagnosis (1) Status post primary low transverse section: Status: Acute Code(s): Z98.891 - History of uterine scar from previous surgery (2) Breech presentation: Status: Acute Code(s): O32.1XX0 - Maternal care for breech presentation, not applicable or unspecified (3) Pre-eclampsia: Status: Acute Code(s): O14.90 - Unspecified pre-eclampsia, unspecified trimester (4) Rh negative state in antepartum period: Status: Acute Code(s): O26.899 - Other specified related conditions, unspecified trimester; Z67.91 - Unspecified blood type, Rh negative Plan 1) POD #3 LTCS 2) Vitals stable 3) I&O 4) Pain controlled 5) Planning D/C today 6) Business Team Leader and CPS involved in care, uncertain of discharge plan at this time 7) Follow up in one week and 6 week for PP visit. Medications at Discharge Home Medications famotidine 20 mg tablet (Pepcid) 20 mg PO DAILY 07/09/22 wisxmunz-lel-Nz-FA 1 mg tablet 1 tab PO DAILY 07/09/22 acetaminophen 500 mg tablet 1,000 mg PO Q6H #30 tabs 07/12/22 ibuprofen 600 mg tablet 600 mg PO Q6H #30 tabs 07/12/22 labetalol 200 mg tablet 200 mg PO TID #90 tabs 07/12/22 sennosides 8.6 mg-docusate sodium 50 mg tablet (Stool Softener-Stimulant Laxative) 1 - 2 tab PO DAILY #30 tabs 07/12/22 Weight / BMI Weight Weight: 263 lb Body Mass Index (BMI) 48.1 ABG / Lab / Microbiology Data Result Diagrams: 07/10/22 04:15 07/10/22 04:15 Microbiology: Microbiology 07/09/22 Unknown Genital vaginal Group B Streptococcus Culture - Final Group B Beta Streptococcus is not isolated. 07/09/22 17:41 Nasal Secretion SARS-CoV-2 Antigen (Rapid) - Final Meaningful Use Info Meaningful Use Diagnoses (Choose all that apply): None applicable Discharge Plan Admission Admit Date/Time: 07/09/22 15:40 Primary Reason for Your Visit: section, preeclampsia Attending Provider: Amanda Mukherjee Primary Care Provider: Care Physician,No Primary Discharge Orders/Prescriptions Prescriptions: New labetalol 200 mg Tablet 200 mg PO TID Qty: 90 0RF sennosides-docusate sodium [Stool Softener-Stimulant Laxat] 8.6-50 mg Tablet 1 - 2 tab PO DAILY Qty: 30 0RF acetaminophen 500 mg Tablet 1,000 mg PO Q6H Qty: 30 0RF ibuprofen 600 mg Tablet 600 mg PO Q6H Qty: 30 0RF Continued famotidine [Pepcid] 20 mg Tablet 20 mg PO DAILY laygrfyh-zwv-Gs-FA 1 mg Tablet 1 tab PO DAILY Discontinued acetaminophen [Tylenol Ex Str Rapid Release] 500 mg Tablet 1,000 mg PO PRN PRN (Reason: Headache) Referrals / Follow Up: Amanda Mukherjee DO [Med Staff - Active Staff] - (Follow up in one week for incision check and blood pressure check) Care Physician,No Primary [Primary Care Provider] - Disposition Disposition (needs filled in before D/C Order can be placed): Home, Self Care
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
[2022-07-12 14:44] VITALS: BP 151/84; PULSE 84; RESP 16; TEMP 37; O2SAT 98
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
--- NOTE | 2022-07-12 14:44 | NURSING ---
mother crying, asymptomatic at this time. labetalol given
[2022-07-12 17:05] VITALS: BP 132/77; PULSE 77; RESP 16; TEMP 36.5; O2SAT 97
--- NOTE | 2022-07-13 17:00 | CASEMGMT ---
Social Work Labor and Delivery Detailed note in baby's chart, linked to this delivery record, and dated 06.23.2022 at 1700. [facility] did obtain custody of baby as of 07.13.2022. Refer to that note in baby's chart for details of interactions occurring on 07.13.2022. Did provide MOB with resources list for [facility] and general information on PPD. MOB was discharged as a patient on 07.12.2022. -NICK Mccabe, CASKET INSPECTOR
== END 2022-07-12 17:28 | disposition home or self-care (01) | DRG 540 ==
LOC: WPOUT 15:45 → WP 20:13
PROVIDERS: Admitting Provider Obstetrics & Gynecology; Visit Provider Obstetrics & Gynecology
DX: O14.14 Severe pre-eclampsia complicating childbirth (principal); O86.4 Pyrexia of unknown origin following delivery; E66.9 Obesity, unspecified; O99.214 Obesity complicating childbirth; O32.1XX0 Maternal care for breech presentation, not applicable or unspecified; Z37.0 Single live birth; O75.89 Other specified complications of labor and delivery; O69.81X0 Labor and delivery complicated by cord around neck, without compression, not applicable or unspecified; Z3A.35 35 weeks gestation of pregnancy; Z87.891 Personal history of nicotine dependence; Z20.822 Contact with and (suspected) exposure to COVID-19
CPT/HCPCS: 59025; 59050; 76815; 80053; 82565; 82570; 84156; 84450; 84460; 84550; 85027; 86850; 86900; 86901; 87081; 87653; 87811; 99218; J7120; A4216; G0378; J0702; J2405

== ENCOUNTER 2023-12-17 12:40 | Inpatient (IN) | payer MEDICAID, SELFPAY ==
[2023-12-17] VITALS (21 sets, daily range): BP systolic 109–160; BP diastolic 72–105; PULSE 66–146; RESP 16; TEMP 36.1–36.4; O2SAT 84–100; BMI 38.3
[2023-12-17] MEDS: Lactated Ringers 1,000 ML 999 ML IV (13:00)
[2023-12-17 13:44] LABS: Absolute Lymphocyte Count 1.38 X10^3/uL (0.83-4.51); Absolute Neutrophil Count 6.7 X10^3/uL (2.0-7.7); Basophil# 0.03 X10^3/uL; Basophil% 0.3 % (0-1); Eosinophil# 0.02 X10^3/uL; Eosinophils% 0.2 % (0-5); Hemoglobin 11.4 g/dL (12.0-15.0); Lymphocyte # 1.38 X10^3/ul (0.83-4.51); Mean Corp Hgb Conc 31.7 g/dL (32-36); Mean Corpuscular Volume 82.2 fL (81-99); Mean Platelet Vol. 11.8 fl (6.2-12.0); Monocyte# 0.48 X10^3/uL; Monocyte% 5.6 % (0-10); NRBC Flagged by Analyzer 0 % (0-5); Neutrophil # 6.66 X10^3/uL (2.7-7.7); Neutrophil % 77.4 % (47-70); Platelet Count 298 K/mm3 (150-450); RBC Distribution Width CV 13.4 % (11.6-14.6); RBC Distribution Width SD 39.9 fl (35.1-43.9); Red Blood Count 4.38 M/mm3 (4.2-5.4); White Blood Count 8.6 K/mm3 (4.4-11.0)
[2023-12-17 14:22] LABS: Amphetamine Urine VISTA POSITIVE (<1000 ng/mL); Barbiturate Urine VISTA NEGATIVE (< 200 ng/mL); Benzodiazepine Urine VISTA NEGATIVE (< 200 ng/mL); Cocaine Urine VISTA NEGATIVE (< 300 ng/mL); Ecstacy Urine VISTA POSITIVE (< 500 ng/mL); Methadone Urine VISTA NEGATIVE (< 300 ng/mL); PCP Urine VISTA NEGATIVE (< 25 ng/mL); THC Urine VISTA NEGATIVE (< 50 ng/mL); Vista UDS pH Range 5
[2023-12-17 15:01] LABS: Syphilis Antibodies Equiv
[2023-12-17] MEDS: Lactated Ringers 1,000 ML 150 ML IV (15:03)
--- NOTE | 2023-12-17 15:22 | CASEMGMT ---
Labor and Delivery Environmental Services Attendant Address: [address] [place] [address] Date of referral: 12/17/23 Time of referral: 1307 Date of contact: 11/16/23 Time of contact: 1430 Assessment: Sw received consult to meet with mother of baby (KATHY Cole) due to maternal mental health history and current substance use positive for methamphetamine. Sw spoke to RN Barbara prior to meeting with MOB. Barbara reports that TOLU was supposed to present to hospital last night, but did not show- reporting that she had car trouble. TOLU reported to Barbara that her last use of meth was this morning around 0130. Sw met with TOLU at bedside, introduced self and explained sw role during labor, delivery and . TOLU stated that she lost her last baby (Júnior Nugent: :07/09/22) with Children Services involvement, and the couple who has her son is also anticipating/ planning for placement of unborn baby. The couple TOLU is discussing is Javon Walker ([address] [place], [place], [phone]). TOLU states that she has not obtained anything that she needs for baby, however the couple planning on taking baby from hospital have everything they need for baby. TOLU states that she is open to allowing Javon to adopt baby. TOLU reports that she does not have steady housing. She and her (father of baby, KEVIN Tran) have been staying with a family friend named Nika Ivey (at address listed above). TOLU states that she and ROSANA have some friends who are going to pay for them to stay in a hotel after delivery for a couple of weeks. Sw asked what hotel they are planning on staying at, and TOLU stated that she is not sure yet. TOLU states that in regards to her relapse, she was sober for about 5 or 6 months after her son was born. TOLU states that she got stressed out and relapsed on meth. TOLU reports that she uses every day, mostly at night every couple of hours so that she will stay awake. TOLU states that she does not feel as though she is able to get all the things done during the day that she needs to, so she uses meth to help her stay awake. MOB states that ROSANA also uses meth, and used to use other substances including heroin and marijuana, but does not do anything besides meth at this time. TOLU has intentions of getting connected to [facility] after delivery. Sw offered to make referral so that she has an appointment scheduled prior to discharge. MOB states that she does not want to do that until she is done healing from her . Sw to address this with MOB again prior to discharge. Sw called [facility] and spoke to hotline screener and reported due to issues and concerns expressed above. Hotline screener stated that she would start writing up referral to give to the janitorial services supervisor and stated she would call sw back. Plan: Sw will continue to follow throughout current hospitalization to assist with discharge planning. Viri Jalloh, GAS APPLIANCE INSTALLER, LATENT FINGERPRINT EXAMINER
[2023-12-17] MEDS: Acetaminophen 500 MG Tablet 1000 MG PO ×2 (15:35→21:30)
[2023-12-17] MEDS: Sodium Citrate/Citric Acid 30 ML UDC PO (15:36)
[2023-12-17] MEDS: Cefazolin 2 GM in 0.9% Normal Saline (100mL Bag) 100 ML IV (15:50)
--- NOTE | 2023-12-17 15:50 | PCM.HP.OB ---
HPI - General General Date of Admission: 12/17/23 Date of Service: 12/17/23 HPI Narrative SIRISHA MORAN, is a 23 F who presents for repeat . Maternal Data Information Final ELMER: [birth year] Gestational age: 36 weeks [facility] Medical History (Updated 12/17/23 @ 15:[address] Tucker Graham MD) Anxiety Chlamydia infection affecting Depression Family history of hearing loss at age younger than 7 years Pre-eclampsia Home Medications famotidine 20 mg tablet (Pepcid) 20 mg PO DAILY 07/09/22 [History Last Taken 07/08/22 21:00] [id number]-FA 1 mg tablet 1 tab PO DAILY 07/09/22 [History Last Taken 07/08/22 08:00] acetaminophen 500 mg tablet 1,000 mg (2 x 500 mg) PO Q6H #30 tabs 07/12/22 [Rx Last Taken Unknown] ibuprofen 600 mg tablet 600 mg PO Q6H #30 tabs 07/12/22 [Rx Last Taken Unknown] labetalol 200 mg tablet 200 mg PO TID #90 tabs 07/12/22 [Rx Last Taken Unknown] sennosides 8.6 mg-docusate sodium 50 mg tablet (Stool Softener-Stimulant Laxative) 1 - 2 tab PO DAILY #30 tabs 07/12/22 [Rx Last Taken Unknown] bupropion HCl 150 mg 24 hr tablet, extended release (Wellbutrin XL) 150 mg PO DAILY anxiety 12/17/23 [History Last Taken Unknown] Allergy/AdvReac Type Severity Reaction Status Date / Time No Known Allergies Allergy Verified 12/17/23 14:02 Surgical History (Updated 12/17/23 @ 15:[address] Tucker Graham MD) History of surgery Social History (Updated 12/17/23 @ 15:[address] Tucker Graham MD) housing: homeless Smoking Status: Current every day smoker tobacco type: cigarettes substance use type: methamphetamine History Elective abortions Hx Para 1 Spontaneous abortions Hx # Term Pregnancies Ectopic pregnancies Hx # Pregnancies Multiple births # of living children Vital Signs Vital Signs Vital Signs: 12/17/23 12:59 12/17/23 12:59 12/17/23 13:04 Temperature Temperature Source Pulse Rate 111 H Respiratory Rate Blood Pressure 145/103 H Blood Pressure Mean BP Systolic 145 BP Diastolic 103 Blood Pressure Source Blood Pressure Position Blood Pressure Location Pulse Ox 99 Oxygen Delivery Method 12/17/23 13:04 12/17/23 13:05 12/17/23 13:05 Temperature Temperature Source Pulse Rate 98 97 Respiratory Rate Blood Pressure Blood Pressure Mean BP Systolic BP Diastolic Blood Pressure Source Blood Pressure Position Blood Pressure Location Pulse Ox 99 Oxygen Delivery Method 12/17/23 13:10 12/17/23 13:10 12/17/23 13:15 Temperature Temperature Source Pulse Rate 98 Respiratory Rate Blood Pressure 147/105 H Blood Pressure Mean BP Systolic 147 BP Diastolic 105 Blood Pressure Source Blood Pressure Position Blood Pressure Location Pulse Ox 99 Oxygen Delivery Method 12/17/23 13:15 12/17/23 13:24 12/17/23 13:24 Temperature Temperature Source Pulse Rate 104 H 146 H Respiratory Rate Blood Pressure Blood Pressure Mean BP Systolic BP Diastolic Blood Pressure Source Blood Pressure Position Blood Pressure Location Pulse Ox 84 Oxygen Delivery Method 12/17/23 14:12 12/17/23 14:12 12/17/23 14:57 Temperature Temperature Source Pulse Rate 94 Respiratory Rate Blood Pressure 131/91 H 132/86 H Blood Pressure Mean BP Systolic 131 132 BP Diastolic 91 86 Blood Pressure Source Blood Pressure Position Blood Pressure Location Pulse Ox Oxygen Delivery Method 12/17/23 14:57 12/17/23 15:03 12/17/23 15:03 Temperature Temperature Source Temporal Pulse Rate 93 Respiratory Rate 16 Blood Pressure Blood Pressure Mean BP Systolic BP Diastolic Blood Pressure Source Blood Pressure Position Blood Pressure Location Pulse Ox Oxygen Delivery Method 12/17/23 15:03 12/17/23 15:37 Temperature 97.4 F L 97.4 F L Temperature Source Temporal Pulse Rate 93 Respiratory Rate 16 Blood Pressure 132/86 H Blood Pressure Mean 101 BP Systolic BP Diastolic Blood Pressure Source Monitor Blood Pressure Position Sitting Blood Pressure Location Right Arm Pulse Ox 98 Oxygen Delivery Method Room Air Weight Weight: 223 lb 4 oz Body Mass Index (BMI) 38.3 Physical Exam Const alert, oriented x3 and no apparent distress Chest inspection of chest normal GI soft to palpation, non-tender and non-distended Inspection: gravid Labs Labs Labs: Blood Type O NEGATIVE Antibody Screen NEGATIVE Hct 36.0 % (37-47) L Hgb 11.4 g/dL (12.0-15.0) L Syphilis Total Ab Equiv Group B Strep DNA Negative (Negative) Rhogam given: No Miscellaneous Test Pending Assessment & Plan (1) Previous section: (2) Drug abuse: (3) Cholestasis during : QUALIFIERS: Trimester: third trimester Qualified Code(s): O26.643 - Intrahepatic cholestasis of , third trimester PLAN: Plan MOD - repeat . R/B/A discussed and informed consent signed. 36week delivery recommended by M due to level of bile acid elevation this . Plan for social work consult due to housing instability and drug use in .
--- NOTE | 2023-12-17 15:59 | EX.PCM.OBRPT ---
Maternal Data Information Final ELMER: [birth year] Gestational age: 36 weeks Details Operative Information Date of Procedure: 12/17/23 Pre-Operative Diagnosis: (1) Prior section (2) Cholestasis in Post-Operative Diagnosis: Same Indications for : Repeat Elective Indications Narrative: The patient was taken to the operating room where spinal anesthesia was placed & found to be adequate. She was prepped and draped in the dorsal supine position with a leftward tilt. A Pfannenstiel skin incision was made approximately 2 cm above the symphysis pubis and carried through to the underlying fascia with the scalpel. The fascia was incised incised in the midline and extended laterally with the Hayden scissors. The rectus muscles were in the midline and the peritoneum was entered carefully and bluntly. The peritoneal incision was stretched and the bladder blade was inserted. Vesicouterine peritoneum was tented up, incised & then bladder flap created gently. The uterine incision was made in a low transverse fashion with the scalpel and extended superiorly and inferiorly with blunt dissection. The infant's head was brought to the incision in the flexed position. It was unable to be delivered despite adequate room. A vacuum was placed on the head (position confirmed) and with 1 pull the head delivered without difficulty. Vacuum released and then the head was gently guided to allow delivery of the anterior and posterior shoulders. The body then delivered with fundal pressure in the standard fashion. The 3VC cord was clamped and cut. The was handed off to the waiting pediatric audiologist. The placenta was delivered with fundal massage and gentle traction in the standard fashion. The uterus was exteriorized and cleared of clots and debris. The uterine incision was closed with #1 Vicryl suture in a running locked fashion. Monocryl suture was used in an imbricating fashion. The incision was examined and was found to be hemostatic. The uterus was returned to the abdominal cavity. After irrigating Flora was placed over the uterine incision as some areas were denuded (but hemostatic). The rectus muscle was examined and any bleeding was Bovie cauterized. The fascia was closed with PDS suture in a running standard fashion. The subcutaneous tissue was examining and any bleeding was Bovie cauterized. The subcutaneous tissue was reapproximated with interrupted sutures. The skin was closed in a subcuticular fashion by the [employer] MANAGER while I was present in the labor & delivery unit. The remainder of the procedure was performed by me with assistance. All sponge, lap, and needle counts were correct. The patient was taken to her room for recovery in a stable condition. Classification: Scheduled Procedure Type: low transverse manpower development specialist manager #1: Kevin Monique Type of Anesthesia: Spinal Antibiotic Given: Ancef 2 grams IV x1 Drain: Hanna to straight drain Estimated Blood Loss: 800ml Fluids Replaced: 1000ml Procedure Start Time: 16:15 Procedure Stop Time: 16:55 Findings Description of Procedure: Normal maternal uterus and adnexa Presentation: Positive for Vertex Amniotic Membrane Rupture Type: Artificial Amniotic Fluid Description: Lightly stained meconium Placenta Disposition: [facility] Specimen(s) Sent to Pathology: placenta Cord Vessel Description: 3 Vessels Cord Entanglement: Around neck x 1, loose Nuchal Cord Compression: Without compression Cord Gases: ABG and VBG Infant A Gender: Female (1 minute): 7 (5 minute): 8 Delayed Cord Clamping: No Complications Complications: None
[2023-12-17] MEDS: Oxytocin 15 Units/NS 250ml 15 UNITS/250 ML IV.SOLN 83 UNITS IV (17:10)
[2023-12-17] MEDS: Ketorolac 30 MG/ML Syringe IV (17:56)
--- NOTE | 2023-12-17 20:47 | NURSING ---
this RN entered room due to pulse ox reading 88%, pt resting in bed, appeared restless. diaphoretic. pulse ox sensor adjusted on toe, pulse ox then read 99-100% while on room air. gown changed, pericare and pad changed, bed linens changed. this RN asked pt if she felt as if she was withdrawing, pt stated i dont know i have never been through it before pt reported to this RN she used meth by drinking it or smoking it about twice each night. pt reports feeling itchy and requesting medication for this. will continue to monitor
[2023-12-17] MEDS: DiphenhydrAMINE 25 MG Capsule PO (21:30)
[2023-12-17] MEDS: Magnesium Sulfate 4gm/100mL 4 GM/100 ML IV.SOLN. IV (23:52)
[2023-12-18] VITALS (29 sets, daily range): BP systolic 78–138; BP diastolic 35–109; PULSE 66–99; RESP 16–18; TEMP 35.9–36.5; O2SAT 97–100
[2023-12-18] MEDS: 0.9% Saline Lock 10 ML Syringe IV ×3 (00:12→12:09)
[2023-12-18] MEDS: Magnesium Sulfate 20 GM/500 ML BAG IV ×3 (00:12→19:47)
[2023-12-18] MEDS: Ketorolac 30 MG/ML Syringe IV ×3 (00:13→12:08)
[2023-12-18 00:33] LABS: AST(SGOT) 68 U/L (15-37); Alanine Aminotransfer ALT/SGPT 164 U/L (13-56); Creatinine, Serum 0.74 mg/dL (0.55-1.02); EST Glomerular Filtration Rate 103 mL/min (>60); Est Glom Filt Rate - Afr Amer 125 mL/min (>60); Estimated Creatinine Clearance 138.04 ml/min; Uric Acid 4.5 mg/dL (2.6-6.0)
[2023-12-18 00:49] LABS: Hematocrit 35.6 % (37-47); Hemoglobin 11.6 g/dL (12.0-15.0); Mean Corp Hgb Conc 32.6 g/dL (32-36); Mean Corpuscular Hgb 27.3 pg (27.0-32.0); Mean Corpuscular Volume 83.8 fL (81-99); Mean Platelet Vol. 11.3 fl (6.2-12.0); Platelet Count 249 K/mm3 (150-450); RBC Distribution Width CV 13.3 % (11.6-14.6); RBC Distribution Width SD 40.4 fl (35.1-43.9); Red Blood Count 4.25 M/mm3 (4.2-5.4); White Blood Count 13.6 K/mm3 (4.4-11.0)
[2023-12-18] MEDS: hydrOXYzine PAM 25 MG Capsule 50 MG PO ×2 (02:00→09:31)
[2023-12-18] MEDS: Enoxaparin 40 MG/0.4 ML Syringe SC (05:03)
[2023-12-18] MEDS: Acetaminophen 500 MG Tablet 1000 MG PO ×4 (05:04→23:14)
[2023-12-18 06:52] LABS: Hematocrit 31.3 % (37-47); Hemoglobin 10.1 g/dL (12.0-15.0); Mean Corp Hgb Conc 32.3 g/dL (32-36); Mean Corpuscular Hgb 26.9 pg (27.0-32.0); Mean Corpuscular Volume 83.2 fL (81-99); Mean Platelet Vol. 11.8 fl (6.2-12.0); Platelet Count 235 K/mm3 (150-450); RBC Distribution Width CV 13.3 % (11.6-14.6); Red Blood Count 3.76 M/mm3 (4.2-5.4); White Blood Count 13.3 K/mm3 (4.4-11.0)
--- NOTE | 2023-12-18 08:45 | PCM.PN.CNM ---
Subjective Subjective Patient seen at bedside. Denies headache, vision changes, SOB, or CP. Has not been out of bed since surgery. C/O itchy arms and legs. Infant in SCN. Objective Data Objective Data Vital Signs: Vital Signs Temp Pulse Resp BP Pulse Ox O2 Del Method 97.0 F L 88 18 114/76 98 Room Air 12/18/23 08:00 12/18/23 08:00 12/18/23 08:00 12/18/23 08:00 12/18/23 08:00 12/18/23 08:00 Oxygen Delivery Method Room Air Weight: 223 lb 4 oz Body Mass Index (BMI) 38.3 Intake & Output: Intake and Output for Last 24 Hours 12/16/23 12/17/23 12/18/23 23:59 23:59 23:59 Intake Total 1660 / 1660 610 / 610 Output Total 950 / 1250 900 / 900 Balance 710 / 410 -290 / -290 Lab / Micro Data 12/18/23 06:15 12/17/23 23:56 Labs: Laboratory Results - last 24 hr 12/17/23 13:00: WBC 8.6, RBC 4.38, Hgb 11.4 L, Hct 36.0 L, MCV 82.2, MCH 26.0 L, MCHC 31.7 L, RDW Std Deviation 39.9, RDW Coeff of Tiara 13.4, Plt Count 298, MPV 11.8, Immature Gran % (Auto) 0.500, Neut % (Auto) 77.4 H, Lymph % (Auto) 16.0 L, [place] % (Auto) 5.6, Eos % (Auto) 0.2, Baso % (Auto) 0.3, Absolute Neuts (auto) 6.7, Absolute Lymphs (auto) 1.38, Nucleated RBC % 0, Urine Opiates Screen NEGATIVE, Urine Methadone Screen NEGATIVE, Ur Barbiturates Screen NEGATIVE, Ur Phencyclidine Scrn NEGATIVE, Ur Amphetamines Screen POSITIVE H, MDMA (Ecstasy) Screen POSITIVE H, U Benzodiazepines Scrn NEGATIVE, Urine Cocaine Screen NEGATIVE, U Cannabinoids Screen NEGATIVE, Ur Drug Screen Comment , Syphilis Total Ab Equiv, Blood Type O NEGATIVE, Antibody Screen NEGATIVE 12/17/23 23:56: WBC 13.6 H, RBC 4.25, Hgb 11.6 L, Hct 35.6 L, MCV 83.8, MCH 27.3, MCHC 32.6, RDW Std Deviation 40.4, RDW Coeff of Tiara 13.3, Plt Count 249, MPV 11.3, Creatinine 0.74, Estim Creat Clear Calc 138.04, Est GFR (MDRD) Af Amer 125, Est GFR (MDRD) Non-Af 103, Uric Acid 4.5, AST 68 H, ALT 164 H 12/18/23 06:15: WBC 13.3 H, RBC 3.76 L, Hgb 10.1 L, Hct 31.3 L, MCV 83.2, MCH 26.9 L, MCHC 32.3, RDW Std Deviation 40.0, RDW Coeff of Tiara 13.3, Plt Count 235, MPV 11.8 ROS Cardiovascular Cardiovascular: Denies abdominal pain, chest pain or dyspnea Respiratory/Chest Respiratory/Chest: Denies cough, dyspnea, shortness of breath at rest or shortness of breath with exertion Gastrointestinal Gastrointestinal: Denies abdominal pain, diarrhea or vomiting Genitourinary Genitourinary: Denies change in urinary stream, difficulty urinating or dysuria Musculoskeletal Musculoskeletal: Reports none Integumentary Integumentary: Reports as per HPI, pruritus and sores; Denies rash Neurologic Neurologic: Denies memory loss or weakness Assessment & Plan (1) Drug abuse: (2) Status post primary low transverse section: (3) History of depression: (4) Tobacco use: (5) Pre-eclampsia, : PLAN: Plan POD 1 Repeat C/S Magnesium sulfate 2gm/hour- continued Blood pressures - within normal ranges D/C chandler catheter and assist patient with ambulation Dr. Smith on unit and updated
[2023-12-18] MEDS: Senna/Docusate Sodium 1 Tablet PO (09:31)
[2023-12-18] MEDS: buPROPion (XL) 150 MG TABLET.XL PO (09:34)
--- NOTE | 2023-12-18 09:37 | CASEMGMT ---
Date of Intervention: 12/18/23 Time of Intervention: 919 Reason for follow-up:Phone contact: [facility] Summary of Family/Staff/Agency Contact: HISTORY: Sw called [facility] to update them that baby was born on 12/17/23 and transferred to [facility]. Sw spoke to hotline screener, Lyn. Lyn took baby stats and medical updates on baby. Lyn reports that address provided by family is actually in [facility]. Lyn stated that she would be transferring referral to [facility], and sw should expect follow up phone call from them. ASSESSMENT: Children Services will be screening referral in and transferring to [facility]. Baby girl, Cristela born on 12/17/[birth year] and transferred to [facility] due to maternal use of methamphetamine during . Baby urine toxicology was positive for meth and ecstasy. Baby will be monitored every three hours using Eat Sleep and console protocol to monitor for signs of withdrawal. PLAN: Sw will remain involved throughout admission to monitor baby's progress towards identified medical goals and work with family and CSB to coordinate discharge planning. Viri Jalloh, PROFESSIONAL DEVELOPMENT DIRECTOR, [employer]MATURE [employer]IL WINDER
--- NOTE | 2023-12-18 15:29 | CASEMGMT ---
Social Work Progress Note Date of Intervention: 12/18/23 Time of Intervention: 1030 Referral Site: [facility] Reason for follow-up:Discharge Planning: with parents and Children Services Summary of Family/Staff/Agency Contact: HISTORY: Assigned child welfare caseworker, Caity, from [facility] presented to unit to meet with MOB and FOB. This sw'er present for conversation. MOB at bedside, FOB presented later. MOB states that she is in agreement with signing safety plan which identifies that she and FOB agree to have baby discharged with kinship providers, Eren and Shira Walker ([address] [place] [address], PH: [phone]). MOB also expressing desire to get connected to mental health and substance use counseling services and supports. Caity going to make referral to [facility]. This sw'er offered MOB the RAMP program that is available at [facility], however MOB states that she does not want to go through detox/ rehab at this time. Caity states that [facility] will also help parents with rapid rehousing. MOB states that when she is ready for discharge Shira is going to pay for MOB and FOB to be in a hotel for a couple of weeks. FOB admits that he is a Tier 2 Sex Offender and has to register every 6 months. Sw discussed this with [facility] staff and they report that they will leave curtains open when FOB is visiting with baby. ASSESSMENT: MOB and baby still admitted. Baby had two apenic events overnight, one of which required stim. Baby will be admitted for at least 5 days as a result. Sw informed Caity that earliest discharge date would be Saturday, and due to it being a weekend, there is potential dc can get pushed back to Saturday. PLAN: Continue to follow patient and family Viri Jalloh, SPORTS BOOK SERVER, COAGULATOR
[2023-12-18] MEDS: Ibuprofen 600 MG Tablet PO ×2 (17:10→23:14)
[2023-12-19] VITALS: BP 134/83; PULSE 86; RESP 17; O2SAT 98
[2023-12-19] MEDS: 0.9% Saline Lock 10 ML Syringe IV
[2023-12-19] MEDS: Enoxaparin 40 MG/0.4 ML Syringe SC (04:39)
[2023-12-19] MEDS: Ibuprofen 600 MG Tablet PO ×4 (04:39→23:04)
[2023-12-19] MEDS: Acetaminophen 500 MG Tablet 1000 MG PO ×4 (04:39→23:04)
[2023-12-19 04:46] VITALS: BP 142/80; PULSE 79; RESP 16; O2SAT 98
[2023-12-19 07:56] VITALS: BP 133/81; PULSE 79; RESP 18; TEMP 36.6; O2SAT 100
--- NOTE | 2023-12-19 08:51 | PN.OBGYN_ITS ---
Subjective Subjective Patient doing well this morning. She offers no complaints. She denies headache, vision changes, upper abdominal pain, nausea, vomiting. Pain is well- controlled. Lochia is normal. She is ambulating and voiding without difficulty. Objective Data Objective Data Vital Signs: Vital Signs Temp Pulse Resp BP Pulse Ox O2 Del Method 97.9 F 79 18 133/81 H 100 Room Air 12/19/23 07:56 12/19/23 07:56 12/19/23 07:56 12/19/23 07:56 12/19/23 07:56 12/19/23 07:56 Oxygen Delivery Method Room Air Weight: 223 lb 4 oz Body Mass Index (BMI) 38.3 Intake & Output: Intake and Output for Last 24 Hours 12/17/23 12/18/23 12/19/23 23:59 23:59 23:59 Intake Total 1660 / 1660 2683.84 / 2768.84 85 / 85 Output Total 950 / 1250 2900 / 3100 750 / 750 Balance 710 / 410 -216.16 / -331.16 -665 / -665 Lab / Micro Data 12/18/23 06:15 12/17/23 23:56 Labs: Laboratory Results - last 24 hr 12/17/23 13:00: Miscellaneous Test Physical Exam Const alert and no apparent distress General Appearance: comfortable HEENT normocephalic Resp normal respiratory effort GI soft to palpation, non-tender and non-distended GI Narrative: dressing c/d/i Assessment & Plan (1) Pre-eclampsia, : (2) Cholestasis during : QUALIFIERS: Trimester: third trimester Qualified Code(s): O26.643 - Intrahepatic cholestasis of , third trimester (3) Drug abuse: (4) Previous section: (5) Status post primary low transverse section: PLAN: Patient is postop from a repeat section. She is doing well. Blood pressures are normal off the magnesium. She is status post 24 hours of magnesium . Will recheck liver function today. Discussed monitoring blood pressures for at least 24 hours once off of magnesium. Possible discharge home tomorrow. (6) History of depression: (7) Tobacco use:
[2023-12-19] MEDS: Senna/Docusate Sodium 1 Tablet PO (10:36)
[2023-12-19] MEDS: buPROPion (XL) 150 MG TABLET.XL PO (10:36)
[2023-12-19 14:13] LABS: Hematocrit 32.3 % (37-47); Mean Corpuscular Hgb 26.4 pg (27.0-32.0); Mean Corpuscular Volume 85.2 fL (81-99); Mean Platelet Vol. 11.2 fl (6.2-12.0); Platelet Count 237 K/mm3 (150-450); RBC Distribution Width CV 13.9 % (11.6-14.6); RBC Distribution Width SD 42.8 fl (35.1-43.9); Red Blood Count 3.79 M/mm3 (4.2-5.4); White Blood Count 12.4 K/mm3 (4.4-11.0)
[2023-12-19 14:26] LABS: AST(SGOT) 34 U/L (15-37); Alanine Aminotransfer ALT/SGPT 91 U/L (13-56); EST Glomerular Filtration Rate 110 mL/min (>60); Est Glom Filt Rate - Afr Amer 133 mL/min (>60); Estimated Creatinine Clearance 145.92 ml/min
[2023-12-19 14:57] VITALS: BP 140/89; PULSE 77; RESP 18; TEMP 36.5; O2SAT 100
--- NOTE | 2023-12-19 15:50 | CASEMGMT ---
Labor and Delivery Driver License Reviewing Officer Sw met with patient and at bedside. Patient states that due to some blood pressure issues she is not going to be discharged today. Patient states that she is comfortable and does not have any issues at this time. at bedside and being supportive. Patient completed SDOH and reports that she is hopeful that rapid rehousing will be successful. reports that both individuals have tried in the past to get clean, have even left the state several times in the hopes that this would help them remain sober. states that although they left the state, they were able to find drugs and ultimately relapsed and then returned home to [place] where they had family. Sw talked and educated patient and her on being fully committed and ready to getting and maintaining sobriety. Sw explained to parents that if they are triggered by people, places and things they truly need to separate themselves from those things. Patient's stated that in the past neither of them were truly ready to get sober. Sw provided ongoing support and education, discussed resources ([facility], [facility], [facility]) and encouraged parents to ask to talk to social work if they have any other needs or issues present themselves. Patient stated that she may be ready for discharge tomorrow. Viri Jalloh, CHIEF OF STAFF DOCTOR, PHYTOPATHOLOGIST
[2023-12-19] MEDS: hydrOXYzine PAM 25 MG Capsule 50 MG PO (16:52)
--- NOTE | 2023-12-19 19:36 | NURSING ---
pt up to chair when RN received report. pt has clearly been independently ambulating, but this RN unsure when first ambulation occurred since RN was not here on shift.
[2023-12-19 20:53] VITALS: BP 139/84; PULSE 77
[2023-12-19 20:54] VITALS: BP 139/84; PULSE 77; RESP 16; TEMP 36.4
[2023-12-20] VITALS (37 sets, daily range): BP systolic 129–180; BP diastolic 72–98; PULSE 69–108; RESP 16–18; TEMP 36.2–36.7; O2SAT 99–100
[2023-12-20] MEDS: NIFEdipine 10 MG Capsule PO (03:51)
[2023-12-20] MEDS: NIFEdipine 10 MG Capsule 20 MG PO (04:20)
[2023-12-20] MEDS: Acetaminophen 500 MG Tablet 1000 MG PO ×3 (04:49→18:42)
[2023-12-20] MEDS: Ibuprofen 600 MG Tablet PO ×3 (04:49→18:41)
[2023-12-20] MEDS: Enoxaparin 40 MG/0.4 ML Syringe SC (04:49)
--- NOTE | 2023-12-20 06:28 | NURSING ---
Dr Mukherjee updated via phone about most recent blood pressures. Order received to give procardia XL now.
[2023-12-20] MEDS: NIFEdipine 30 MG Tablet PO (06:49)
--- NOTE | 2023-12-20 08:53 | PCM.PN.OB ---
Subjective Subjective Ambulating well. Pain controlled. BP elevated this am. S/p magnesium. On procardia now. Baby in SCN Objective Data Objective Data Vital Signs: Vital Signs Temp Pulse Resp BP Pulse Ox O2 Del Method 98.0 F 73 16 148/72 H 99 Room Air 12/20/23 08:03 12/20/23 08:34 12/20/23 08:03 12/20/23 08:34 12/20/23 08:03 12/20/23 08:03 Oxygen Delivery Method Room Air Weight: 101.264 kg Body Mass Index (BMI) 38.3 Intake & Output: Intake and Output for Last 24 Hours 12/18/23 12/19/23 12/20/23 23:59 23:59 23:59 Intake Total 2683.84 / 2768.84 85 / 85 Output Total 2900 / 3100 1350 / 1350 Balance -216.16 / -331.16 -1265 / -1265 Lab / Micro Data 12/19/23 14:05 12/19/23 14:05 Labs: Laboratory Results - last 24 hr 12/19/23 14:05: WBC 12.4 H, RBC 3.79 L, Hgb 10.0 L, Hct 32.3 L, MCV 85.2, MCH 26.4 L, MCHC 31.0 L, RDW Std Deviation 42.8, RDW Coeff of Tiara 13.9, Plt Count 237, MPV 11.2, Creatinine 0.70, Estim Creat Clear Calc 145.92, Est GFR (MDRD) Af Amer 133, Est GFR (MDRD) Non-Af 110, AST 34, ALT 91 H Physical Exam Const alert General Appearance: cooperative GI GI Narrative: soft, moderate distention, fundus firm, appropriately tender. Abdominal bandage clean dry and intact Assessment & Plan (1) Status post primary low transverse section: (2) Drug abuse: (3) Pre-eclampsia, : PLAN: Procardia management of BP . S/p magnesium
--- NOTE | 2023-12-20 11:40 | CASEMGMT ---
Date of Intervention: 12/20/23 Time of Intervention: 899, ongoing Reason for follow up: support, social concerns History: 899: This manager social was informed by cleaning staff supervisor that she discovered needles that had been disposed of in the bathroom trash can. 1000: Alee along with charge nurse, bedside RN, labor and labor delivery rn and corporation officer Aaron met with discuss this concern. 1030: Sw met with patient (Kelsey) and (Marc) at bedside to address this concern. Sw informed parents that it is not okay to have illegal substances on hospital property. Sw informed parents that any remaining substances need to be disposed of, and that any type of sharps, including needles, needed to be disposed of in the sharps container. Marc stated that he threw the needles away in the trash can, apologized and stated that he should have known better. Sw informed parents that if incident were to occur again there may be reason to get Police involved. Parents express understanding. Assessment: Kelsey continues to require admission due to concerns with blood pressure. Both individuals have been respectful towards staff and have not caused any other issues. Discharge at this time unknown. Plan: Sw will remain involved to assist with any discharge planning needs, provide linkage to beneficial community resources and education/ support to patient and . Viri Jalloh, TRAVELING PLANT OPERATOR, VIBRATING SCREEN OPERATOR
[2023-12-20] MEDS: Senna/Docusate Sodium 1 Tablet PO (12:25)
[2023-12-20] MEDS: buPROPion (XL) 150 MG TABLET.XL PO (12:25)
--- NOTE | 2023-12-20 18:18 | PCM.PN.OB ---
Subjective Subjective Staff discovered needles in patient trash can. Patient and were confronted with the find and instructed they can not use drugs while on hospital premises. They stated understanding. Given the patient history of drug use and behavior I asked Kelsey directly if she has used drugs while admitted to the hospital. Her BP has been elevated and those drugs can affect her blood pressure and our efforts to control her blood pressure. She is adamant that she has not used since admission. Objective Data Objective Data Vital Signs: Vital Signs Temp Pulse Resp BP Pulse Ox O2 Del Method 97.6 F L 96 18 143/79 H 100 Room Air 12/20/23 16:30 12/20/23 16:30 12/20/23 16:30 12/20/23 16:30 12/20/23 16:30 12/20/23 16:30 Oxygen Delivery Method Room Air Weight: 101.264 kg Body Mass Index (BMI) 38.3 Intake & Output: Intake and Output for Last 24 Hours 12/18/23 12/19/23 12/20/23 23:59 23:59 23:59 Intake Total 2683.84 / 2768.84 85 / 85 Output Total 2900 / 3100 1350 / 1350 Balance -216.16 / -331.16 -1265 / -1265 Lab / Micro Data 12/19/23 14:05 12/19/23 14:05 Physical Exam Narrative Distracted and fidgiting during conversion. Const General Appearance: cooperative HEENT normocephalic and head/scalp atraumatic Eyes Pupil: dilated Neck full ROM Resp normal respiratory effort Extremity normal to inspection and full ROM Assessment & Plan (1) Pre-eclampsia, : (2) Drug abuse: PLAN: monitor BP (3) Status post primary low transverse section:
--- NOTE | 2023-12-20 18:18 | NURSING ---
At 0915, nut roaster, Eri, saw 2 orange capped Insulin syringes in pt's bathroom trash can. Huddled at 1010 with Eri, manager photo - Fozia, broker in charge - Nubia, high school social studies tutor - Viri, police patrol lieutenant - Roman, and this RN. Decision made for Viri to discuss with pt and pt's importance of not doing drugs in the hospital and how to properly dispose of needles.
--- NOTE | 2023-12-20 18:29 | NURSING ---
This RN noticed pt lethargic with dilated eyes at 1630 when checking VS. Pt unable to stay awake for conversation. At 1730, lost charge card clerk Nubia assessed pt and noted dilated eyes and very fidgety behavior. Notified Dr. Pastor, police guard Roman, and social media marketing manager Viri.
[2023-12-20] MEDS: hydrOXYzine PAM 25 MG Capsule 50 MG PO (20:03)
--- NOTE | 2023-12-20 21:26 | NURSING ---
Upon evening shift assessment at 1999, pt reported feeling anxious and ''cooped up'' to this RN. Pt reports that she sometimes takes something in addition to her daily medication for anxiety and inquires if she is able to have that medication at this time. Pt has active order for Vistaril PRN. Dr. Pastor on unit and updated on pt's feelings of anxiety and request for medication. Dr. Pastor advised RN it is fine to proceed with administering Vistaril PRN as ordered. AmnaRN
[2023-12-21] VITALS (9 sets, daily range): BP systolic 136–146; BP diastolic 75–92; PULSE 75–95; RESP 14–16; TEMP 36.1–36.4; O2SAT 99–100
[2023-12-21] MEDS: Acetaminophen 500 MG Tablet 1000 MG PO ×2 (00:45→06:43)
[2023-12-21] MEDS: Ibuprofen 600 MG Tablet PO ×2 (00:45→06:43)
[2023-12-21] MEDS: Enoxaparin 40 MG/0.4 ML Syringe SC (04:27)
--- NOTE | 2023-12-21 07:40 | PCM.PN.OB ---
Subjective Subjective Blood pressure has been 140s/90s or lower for the last 24 hours. No FLANAGAN. No vision changes. Pain controlled. Discussed Procardia XL daily until told otherwise. Needs to check her BP daily. States she knows where she can get one. Reviewed s/s that are concerning and when to return to the ED Objective Data Objective Data Vital Signs: Vital Signs Temp Pulse Resp BP Pulse Ox O2 Del Method 97.1 F L 81 14 139/83 H 99 Room Air 12/21/23 07:33 12/21/23 07:34 12/21/23 07:33 12/21/23 07:34 12/21/23 07:33 12/21/23 07:33 Oxygen Delivery Method Room Air Weight: 101.264 kg Body Mass Index (BMI) 38.3 Intake & Output: Intake and Output for Last 24 Hours 12/19/23 12/20/23 12/21/23 23:59 23:59 23:59 Intake Total 85 / 85 Output Total 1350 / 1350 Balance -1265 / -1265 Lab / Micro Data 12/19/23 14:05 12/19/23 14:05 Physical Exam Const alert General Appearance: cooperative GI GI Narrative: soft, moderate distention, fundus firm, appropriately tender. Abdominal bandage clean dry and intact Assessment & Plan (1) Status post primary low transverse section: (2) Pre-eclampsia, : PLAN: procardia XL, s/p magnesium (3) Drug abuse: (4) Cholestasis during : QUALIFIERS: Trimester: third trimester Qualified Code(s): O26.643 - Intrahepatic cholestasis of , third trimester
--- NOTE | 2023-12-21 07:50 | PCM.DC.SUM ---
Providers Date of Admission: 12/17/23 Date of Discharge: 12/21/23 Primary Care Physician: No Primary Care Phys Reason For Visit: REPEAT Diagnosis Discharge Diagnosis (1) Status post primary low transverse section: Status: Acute Code(s): Z98.891 - History of uterine scar from previous surgery (2) Pre-eclampsia, : Status: Acute Code(s): O14.95 - Unspecified pre-eclampsia, complicating the puerperium Plan: procardia XL, s/p magnesium (3) Drug abuse: Status: Acute Code(s): F19.10 - Other psychoactive substance abuse, uncomplicated (4) Cholestasis during : Status: Acute Code(s): O26.649 - Intrahepatic cholestasis of , unspecified trimester Qualifiers: Trimester: third trimester Qualified Code(s): O26.643 - Intrahepatic cholestasis of , third trimester Medications at Discharge Home Medications famotidine 20 mg tablet (Pepcid) 20 mg PO DAILY 07/09/22 [id number] 1 mg tablet 1 tab PO DAILY 07/09/22 acetaminophen 500 mg tablet 1,000 mg (2 x 500 mg) PO Q6H #30 tabs 07/12/22 ibuprofen 600 mg tablet 600 mg PO Q6H #30 tabs 07/12/22 sennosides 8.6 mg-docusate sodium 50 mg tablet (Stool Softener-Stimulant Laxative) 1 - 2 tab PO DAILY #30 tabs 07/12/22 bupropion HCl 150 mg 24 hr tablet, extended release (Wellbutrin XL) 150 mg PO DAILY anxiety 12/17/23 nifedipine 30 mg tablet,extended release 24 hr 30 mg PO DAILY 30 days #30 tabs 12/21/23 Hospital Course Operations section Procedures None Summary of Care Provided Minutes Spent on Discharge: 30 Hospital Course: Scheduled repeat at 37 weeks for cholestasis and Pre E. Procedure without complication. Received IV magnesium for 24 hours post . BPs in the severe range on POD#3 requiring oral medication. COntrolled with Procardia 30 XL. in special care with withdrawal from maternal drug use. Concern that patient continued to use drugs while admitted. She denied this but was counselled on the effects the drugs will have on her blood pressure and medication management. Physical Exam Const alert General Appearance: cooperative GI GI Narrative: soft, moderate distention, fundus firm, appropriately tender. Abdominal bandage clean dry and intact Weight / BMI Weight Weight: 101.264 kg Body Mass Index (BMI) 38.3 ABG / Lab / Microbiology Data 12/19/23 14:05 12/19/23 14:05 D/C Instructions Discharge Diet: No restrictions May resume sexual activity in: 4-6 weeks Lifting Restrictions: 20 pounds Additional Activity Instructions: Nothing in the vagina for 4-6 weeks. You may return to work/school in 6 weeks. Call your doctor if your incision/area has: Continuous Slow Oozing, Sudden Increased Bleeding, Increased Pain/ Swelling, Increased Redness and Foul Smelling Discharge Call your doctor if you observe: Fever of 101 or Higher and Using more than 1 pad per hour (for 2 hours) Suture Line Care: Avoid Pulling/Pushing and Avoid Pinching/Bending Cleanse incision/area with: Keep Dressing Clean & Dry Please Follow Up With: Mary Martinez MD When: Call to make an appointment for an incision check in 1-2 [phone]. You will need a post check in 6 weeks. Meaningful Use Info Meaningful Use Diagnoses (Choose all that apply): None applicable Discharge Plan Admission Admit Date/Time: 12/17/23 12:40 Primary Reason for Your Visit: repeat Attending Provider: Tucker Graham Primary Care Provider: Pamela Samaniego Primary Instructions Patient Instructions: Taking Blood Pressure Medications Discharge Orders/Prescriptions Prescriptions: New nifedipine 30 mg Tablet Extended Release 24hr 30 mg PO DAILY 30 Days Qty: 30 0RF Continued famotidine [Pepcid] 20 mg Tablet 20 mg PO DAILY [id number] 1 mg Tablet 1 tab PO DAILY sennosides-docusate sodium [Stool Softener-Stimulant Laxat] 8.6-50 mg Tablet 1 - 2 tab PO DAILY Qty: 30 0RF acetaminophen 500 mg Tablet 1,000 mg PO Q6H Qty: 30 0RF ibuprofen 600 mg Tablet 600 mg PO Q6H Qty: 30 0RF bupropion HCl [Wellbutrin XL] 150 mg tablet extended release 24 hr 150 mg PO DAILY Discontinued labetalol 200 mg Tablet 200 mg PO TID Qty: 90 0RF Referrals / Follow Up: Care Physician,Pamela Primary [Primary Care Provider] - Disposition Disposition (needs filled in before D/C Order can be placed): Home, Self Care
[2023-12-21] MEDS: NIFEdipine 30 MG Tablet PO (10:11)
[2023-12-21] MEDS: Senna/Docusate Sodium 1 Tablet PO (10:11)
[2023-12-21] MEDS: buPROPion (XL) 150 MG TABLET.XL PO (10:46)
--- NOTE | 2023-12-26 14:56 | NURSING ---
Follow up phone call not performed due to infant being in [facility] and CPS involved in care. Pt. did not take home, foster parents present with in [facility].
== END 2023-12-21 12:00 | disposition home or self-care (01) | DRG 540 ==
PROVIDERS: Obstetrics & Gynecology; Admitting Provider Obstetrics & Gynecology; Visit Provider Obstetrics & Gynecology
PROC: 10D00Z1 Extraction of Products of Conception, Low, Open Approach (ICD-10-PCS; CPT 59514; principal; 2023-12-17 11:45)
DX: O26.643 Intrahepatic cholestasis of pregnancy, third trimester (principal); O14.95 Unspecified pre-eclampsia, complicating the puerperium; O99.324 Drug use complicating childbirth; F19.99 Other psychoactive substance use, unspecified with unspecified psychoactive substance-induced disorder; F17.210 Nicotine dependence, cigarettes, uncomplicated; O26.62 Liver and biliary tract disorders in childbirth; O99.334 Smoking (tobacco) complicating childbirth; O69.2XX0 Labor and delivery complicated by other cord entanglement, with compression, not applicable or unspecified; Z59.00 Homelessness unspecified; Z37.0 Single live birth; O34.219 Maternal care for unspecified type scar from previous cesarean delivery; Z3A.36 36 weeks gestation of pregnancy; Z86.59 Personal history of other mental and behavioral disorders
CPT/HCPCS: 59025; 59050; 80307; 82565; 84450; 84460; 84550; 85025; 85027; 86780; 86850; 86900; 86901; 99221; J7120; A4216; G0378; J2405

== ENCOUNTER → 2024-06-04 | Outpatient (CLI) | payer MEDICAID, SELFPAY ==
[2024-06-04 17:24] LABS: Absolute Lymphocyte Count 1.64 X10^3/uL (0.83-4.51); Basophil# 0.04 X10^3/uL; Basophil% 0.5 % (0-1); Eosinophil# 0.17 X10^3/uL; Hematocrit 37.5 % (37-47); Hemoglobin 11.2 g/dL (12.0-15.0); Lymphocyte # 1.64 X10^3/ul (0.83-4.51); Lymphocyte % 19.5 % (19-41); Mean Corp Hgb Conc 29.9 g/dL (32-36); Mean Corpuscular Hgb 23.7 pg (27.0-32.0); Mean Corpuscular Volume 79.3 fL (81-99); Mean Platelet Vol. 10.7 fl (6.2-12.0); Monocyte# 0.52 X10^3/uL; Monocyte% 6.2 % (0-10); NRBC Flagged by Analyzer 0 % (0-5); Neutrophil % 71.4 % (47-70); Platelet Count 305 K/mm3 (150-450); RBC Distribution Width CV 14.1 % (11.6-14.6); RBC Distribution Width SD 40.6 fl (35.1-43.9); Red Blood Count 4.73 M/mm3 (4.2-5.4); White Blood Count 8.4 K/mm3 (4.4-11.0)
[2024-06-04 17:47] LABS: Hemoglobin A1c 5.1 % (3.8-5.6)
[2024-06-04 17:54] LABS: ALB/GLOB Ratio 0.8 RATIO (0.9-2.4); AST(SGOT) 17 U/L (15-37); Alanine Aminotransfer ALT/SGPT 28 U/L (13-56); Albumin, Serum 3.2 g/dL (3.2-5.0); Alkaline Phosphatase 108 U/L (45-117); Anion Gap 6 (5-15); BUN 14 mg/dL (7-18); Calcium,Total 8.9 mg/dL (8.5-10.1); Chloride 110 mmol/L (98-107); Cholesterol 132 mg/dL (200); Creatinine, Serum 0.94 mg/dL (0.55-1.02); EST Glomerular Filtration Rate 79 mL/min (>60); Est Glom Filt Rate - Afr Amer 96 mL/min (>60); Globulin 4.1 g/dL (2.2-4.2); Glucose 100 mg/dL (74-106); High Density Lipoprotein 31 mg/dL; Potassium 3.8 mmol/L (3.5-5.1); Protein, Total 7.3 g/dL (6.4-8.2); Sodium Level 140 mmol/L (136-145); Triglycerides 305 mg/dL; Very Low Density Lipoprotein 61 mg/dL (5-40)
[2024-06-04 19:29] LABS: HIV - WCH Non-Reactive (Nonreactive); Syphilis Antibodies Equiv
[2024-06-06 05:07] LABS: HEPATITIS B SURFACE AG Negative (Negative); Hep B Surface Antibodies Non Reactive (.); Hepatitis B Core Ab Total Negative (Negative); Hepatitis C Ab Non Reactive (Non Reactive)
== END | disposition home or self-care (01) ==
PROVIDERS: Visit Provider Nurse Practitioner Family
DX: E66.9 Obesity, unspecified (principal); F19.11 Other psychoactive substance abuse, in remission; G43.909 Migraine, unspecified, not intractable, without status migrainosus
CPT/HCPCS: 36415; 80053; 80061; 83036; 84443; 85025; 86703; 86704; 86705; 86706; 86707; 86780; 86803; 87340; 87350

== ENCOUNTER → 2024-06-15 | Outpatient (CLI) | payer MEDICAID, SELFPAY ==
[2024-06-16 18:08] LABS: Treponema palladium Ab (FTA) NONREACTIVE
== END | disposition home or self-care (01) ==
PROVIDERS: Referring Provider Nurse Practitioner Family; Visit Provider Nurse Practitioner Family
DX: A53.9 Syphilis, unspecified (principal)
CPT/HCPCS: 36415; 86780

== ENCOUNTER → 2024-07-06 | Outpatient (CLI) | payer MEDICAID, SELFPAY ==
--- NOTE | 2024-07-06 19:26 | CT_ITS ---
STUDY: CT BRAIN WITHOUT CONTRAST REASON FOR EXAM: Female, 23 years old. HEAD INJURY RADIATION DOSAGE (If Supplied By Facility): CTDIvol = ( 44.99 ) mGy, DLP = ( 762.36 ) mGycm TECHNIQUE: Transaxial CT imaging of the brain was performed without administration of intravenous contrast material. Individualized dose optimization techniques were used for this CT. COMPARISON: No relevant priors. FINDINGS: Normal soft tissue structures. Normal calvarium. Normal size ventricles and extra-axial spaces for the patient''s age. Normal white matter tracts of the cerebral hemispheres. Normal basal ganglia and thalami. Normal brainstem. Normal cerebellum. There is no intracranial hemorrhage. There are no findings of an acute ischemic infarction. Normal visualized paranasal sinuses. CT/Brain/Head without Contrast IMPRESSION: Normal unenhanced CT scan of the brain. Electronically Signed: Yoav Ybarra MD at 14:49 EDT ,
== END | disposition home or self-care (01) ==
PROVIDERS: Referring Provider Nurse Practitioner Family; Visit Provider Nurse Practitioner Family
DX: S09.90XA Unspecified injury of head, initial encounter (principal)
CPT/HCPCS: 70450

== ENCOUNTER → 2024-08-04 | Outpatient (CLI) | payer MEDICAID, SELFPAY | END | disposition home or self-care (01) | PROVIDERS: PCP Nurse Practitioner Family; Visit Provider Nurse Practitioner Family | DX: A53.9 Syphilis, unspecified (principal) | CPT/HCPCS: 36415; 86780 ==

== ENCOUNTER → 2024-10-20 | Outpatient (CLI) | payer MEDICAID, SELFPAY ==
--- NOTE | 2024-10-20 09:19 | RAD_ITS ---
EXAM: ESOPHAGUS DUAL CONTRAST CLINICAL HISTORY: Dysphagia with liquids. COMPARISON: None. TECHNIQUE: The patient ingested barium. Multiple fluoroscopic images of the esophagus were obtained. The patient ingested a 12 mm tablet of barium. FINDINGS: The esophagus is unremarkable. No evidence of gastroesophageal reflux. No evidence of obstruction. The patient ingested a 12 mm tablet the barium without any difficulty. RAD/Esophagus Dual Contrast IMPRESSION: Unremarkable air contrast esophagram. Reading Location: [facility]
== END | disposition home or self-care (01) ==
LOC: RAD 09:18
PROVIDERS: PCP Nurse Practitioner; Referring Provider Otolaryngology; Visit Provider Otolaryngology
DX: K21.9 Gastro-esophageal reflux disease without esophagitis (principal)
CPT/HCPCS: 74221